=== PATIENT | male | born 1935 | race Caucasian/White ===

== ENCOUNTER 2018-08-27 15:28 | Emergency (ER) | payer MEDICARE, OTHER ==
[~2018-08-27] VITALS: Ht 188 cm; Wt 108.9 kg
[~2018-08-27 15:28] MED LIST: ALBU3IS; AMOX500 PO; ASPI81CH PO; CLARITIN10 MG PO; CYCL10 PO; DOCU100 PO; GUAI600T33 PO; HYDMOR2 PO; Hydrocodone-Ap1 EA20 PO; LAVAP17G; LISI20 PO; MELA3 PO; METO25; MIRALAX119 GM PO; MORP15ER PO; Morphine Sulfat15 MG PO; ONDA4 PO; Prednisone20 MG PO; SACC250C PO; SENN187 PO; TAMS.4ER PO; TIZANIDINE HCL2 MG PO; WARF5; Zithromax250 MG PO
== END 2018-08-27 18:57 | disposition home or self-care (01) ==
LOC: ER 15:28
DX: T83.028A Displacement of other urinary catheter, initial encounter (principal); Z88.8 Allergy status to other drugs, medicaments and biological substances; Z88.5 Allergy status to narcotic agent; Z79.899 Other long term (current) drug therapy; Z79.82 Long term (current) use of aspirin; Z79.52 Long term (current) use of systemic steroids; J44.9 Chronic obstructive pulmonary disease, unspecified; Z87.891 Personal history of nicotine dependence
CPT/HCPCS: 99283

== ENCOUNTER → 2018-10-13 | Outpatient (CLI) | payer MEDICARE, OTHER ==
[2018-10-19 09:07] LABS: BRUSHITE 5.24 ratio (0.00-3.00); CALCIUM OXALATE 5.86 ratio (0.00-6.00); CALCIUM, URINE 135.8 mg/24 hr (100.0-300.0); CALCIUM, URINE 9.7 mg/dL (Not Estab.); CHLORIDE URINE 106 (110-250); CITRIC ACID (CITRATE) 32 mg/L (Not Estab.); CITRIC ACID(CITRATE) 45 mg/24 hr (320-1240); CREATININE, URINE 85.5 mg/dL (Not Estab.); MAGNESIUM, URINE 7.5 mg/dL (Not Estab.); MONOSODIUM URATE 2.96 ratio (0.00-4.00); OSMOLALITY, URINE 480 (300-900); SODIUM, URINE 118 (23-207); SODIUM, URINE 84 mmol/L (Not Estab.); STRUVITE 2.23 ratio (0.00-1.00); URIC ACID 0.14 ratio (0.00-1.20); URINE VOLUME 1400 mL/24 hr (800-1800); URINE VOLUME (PRESERVATIVE) 1400 mL/24 hr (800-1800)
== END ==
LOC: LAB SHORT 08:32 → LAB 08:32
PROVIDERS: Nurse Practitioner Adult Health
DX: N20.2 Calculus of kidney with calculus of ureter (principal); R33.9 Retention of urine, unspecified
CPT/HCPCS: 81003; 81050; 82131; 82140; 82340; 82436; 82507; 82570; 83735; 83935; 83945; 84105; 84133; 84300; 84392; 84560

== ENCOUNTER 2019-01-29 16:28 | Inpatient (IN) | payer MEDICARE, OTHER ==
[~2019-01-29] VITALS: Ht 188 cm; Wt 109.4 kg
[~2019-01-29 16:28] MED LIST changes: -ASPI81CH PO; +Aspirin EC81 MG PO; +DOC250 PO
[2019-01-29 17:03] LABS: BASOPHILS ABSOLUTE AUTO 0.08 K/mm3 (0.00-0.23); BASOPHILS PERCENT AUTO 1 % (0-2); EOSINOPHILS ABSOLUTE AUTO 0.58 K/mm3 (0.00-0.68); EOSINOPHILS PERCENT AUTO 8 % (0-6); Hematocrit 46.8 % (37.0-53.0); Hemoglobin 15.6 g/dL (13.5-17.5); IMMATURE GRAN ABSOLUTE AUTO 0.03 K/mm3 (0.00-0.10); IMMATURE GRAN PERCENT AUTO 0 % (0-1); LYMPHOCYTES ABSOLUTE AUTO 1.37 K/mm3 (0.84-5.20); LYMPHOCYTES PERCENT AUTO 19 % (21-46); MONOCYTES PERCENT AUTO 8 % (4-13); Mean Corpuscular HGB 30.7 pg (26.0-34.0); Mean Corpuscular HGB Conc 33.3 g/dL (31.5-36.5); Mean Corpuscular Volume 92 fL (80-100); Mean Platelet Volume 9.8 fL (9.1-12.4); NEUTROPHILS ABSOLUTE AUTO 4.53 K/mm3 (1.96-9.15); NEUTROPHILS PERCENT AUTO 63 % (41-73); Platelet Count 290 K/mm3 (150-400); RDW Coefficient Variation 13.1 % (11.7-14.2); Red Blood Cell Count 5.08 M/mm3 (4.30-5.90); White Blood Cell Count 7.19 K/mm3 (4.00-11.30)
[2019-01-29 17:29] LABS: Albumin, Blood 3.8 g/dL (3.4-5.0); Bilirubin, Total 0.4 mg/dL (0.1-1.0); Bun/Creatinine Ratio 18.1 (12.0-20.0); Calcium, Blood 8.7 mg/dL (8.5-10.1); Creatinine, Blood 1.38 mg/dL (0.60-1.20); Globulin, Blood 3.8 g/dL (2.2-4.0); Potassium, Blood 3.9 mmol/L (3.5-5.5); Total Protein, Blood 7.6 g/dL (6.4-8.2); Troponin I 0.016 ng/mL (0.000-0.040)
[2019-01-29 18:04] LABS: PCO2 Arterial 42.9 mmHg (35-45); PO2 Arterial 74.2 mmHg (80-100); pH Blood Arterial 7.42 (7.35-7.45)
[2019-01-29] MEDS ORDERED: ALBU90OI INH (18:05)
[2019-01-29] MEDS ORDERED: DILTIAZEM 24HR360 MG PO (18:07)
[2019-01-29] MEDS ORDERED: BUDE6HFA INH (18:07)
[2019-01-29] MEDS ORDERED: DULO60 PO (18:07)
[2019-01-29] MEDS ORDERED: SENN187 PO (18:07)
[2019-01-29] MEDS ORDERED: LOSA50 PO (18:08)
[2019-01-29] MEDS ORDERED: MIRALAX17 GM PO (21:24)
[2019-01-29] MEDS ORDERED: TIOT18 INH (21:26)
[2019-01-30 00:43] LABS: Source, Urine Catheter
[2019-01-30 00:45] LABS: Bilirubin, Urine Neg (Neg); Blood, Urine 5+ (Neg); Glucose Qualitative, Urine Neg (Neg); Ketones, Urine 2+ (Neg); Leukocyte Esterase, Urine 3+ (Neg); Nitrite, Urine Pos (Neg); Protein, Urine 2+ (Neg); Specific Gravity, Urine 1.025 (1.003-1.022); Urobilinogen, Urine 1+ (Normal)
[2019-01-30 00:46] LABS: Appearance, Urine Cloudy (Clear); Color, Urine Yellow (P-Yellow)
[2019-01-30 01:05] LABS: Bacteria Many /hpf; Hyaline Casts 25-50 /lpf (0-2); Squamous Epithelial Cells Rare /hpf (Few); White Blood Cells, Urine 50-100 /hpf (0-5)
[2019-01-30 09:45] LABS: Adenovirus Not Detected (NOT DETECT); Bordetella pertussis Not Detected (NOT DETECT); Chlamydophila pneumoniae Not Detected (NOT DETECT); Coronavirus 229E Not Detected (NOT DETECT); Coronavirus HKU1 Not Detected (NOT DETECT); Coronavirus NL63 Not Detected (NOT DETECT); Coronavirus OC43 Not Detected (NOT DETECT); Human Metapneumovirus Not Detected (NOT DETECT); Human Rhinovirus/Enterovirus Not Detected (NOT DETECT); Influenza A Not Detected (NOT DETECT); Influenza A/2009-H1 Not Detected (NOT DETECT); Influenza A/H1 Not Detected (NOT DETECT); Influenza A/H3 Not Detected (NOT DETECT); Influenza B Not Detected (NOT DETECT); Mycoplasma pneumoniae Not Detected (NOT DETECT); Parainfluenza Virus 1 Not Detected (NOT DETECT); Parainfluenza Virus 2 Not Detected (NOT DETECT); Parainfluenza Virus 3 Not Detected (NOT DETECT); Parainfluenza Virus 4 Not Detected (NOT DETECT); Respiratory Syncytial Virus Not Detected (NOT DETECT)
--- NOTE | 2019-01-30 17:08 | NUR ---
SHIFT SUMMARY PT AXO, PLEASANT AND COOPERATIVE WITH CARE. PT HYPERTENSIVE THIS MORNING AT 166/111. DR MURRAY AWARE, MEDICATED PER EMAR. PT AMBULATED DOWN THE HALLWAY WITH 1 ASSIST GB AND FWW THOUGH PT MOVES QUICKLY AND IS IMPULSIVE, NEEDS REMINDERS TO SLOW. 02 AT 95% POST AMBULATION. PT DENIES PAIN. COMPLAINS OF GAS AND ACID REFLUX, DR MURRAY AWARE AND NEW ORDERS IN PLACE. BED IN LOW POSITION, CALL LIGHT WITHIN REACH.
[2019-01-31] MEDS ORDERED: CIPR500 PO (02:09)
--- NOTE | 2019-01-31 04:44 | NUR ---
SHIFT SUMMARY NO ACUTE CHANGES THIS SHIFT. PT HAS RESTED FOR MOST OF THE NIGHT. PT RESP E/U ON RA. LUNGS ARE DIMISHED T/O. PT CONTINUES TO HAVE PRODUCTIVE COUGH WITH GREEN/YELLOW THICK SPUTUM. BREATHING TREATMENTS PROVIDED ORDERED. PT HAS HX OF CONSTIPATION, BOWEL CARE STARTED. LAST CHARTED BM 01/29/19. VITALS STABLE. PLAN IS TO SWITCH TO ORAL STEROIDS AND POSSIBLE DC TODAY. BED IN LOWEST POSITION, CALL LIGHT WITHIN REACH. WILL CONTINUE TO MONITOR AND REPORT TO ONCOMING RN.
[2019-01-31] MEDS ORDERED: ACET325 PO (09:14)
[2019-01-31] MEDS ORDERED: ROBITUSSIN COU237 ML PO (09:15)
[2019-01-31] MEDS ORDERED: PRED20 (09:17)
--- NOTE | 2019-01-31 09:42 | NUR ---
DISCHARGE INSTRUCTIONS REVIEWED WITH PATIENT. PRINTED COPY GIVEN FOR REFERENCE. ALL QUESTIONS ANSWERED. PER DR MURRAY, SILVA INHALER TO BE SENT HOME WITH PATIENT. IV D/C'ED. TAYLOR TO REMAIN IN PLACE.
--- NOTE | 2019-01-31 10:25 | NUR ---
PATIENT DISCHARGED HOME AT 1025 WITH . TRANSFERED TO VEHICLE BY WHEELCHAIR AND MEDICAL PHYSIOLOGIST.
== END 2019-01-31 10:35 | disposition home or self-care (01) | DRG 192 ==
LOC: ER 16:28 → MEDS 19:23 → ENPENDDIS 01-31 09:52 → MEDS 01-31 10:35
PROVIDERS: Emergency Medicine; ADMIT Family Medicine
DX: J44.1 Chronic obstructive pulmonary disease with (acute) exacerbation (principal); I10 Essential (primary) hypertension; I48.91 Unspecified atrial fibrillation; Z79.82 Long term (current) use of aspirin; Z86.718 Personal history of other venous thrombosis and embolism; Z88.5 Allergy status to narcotic agent; Z88.8 Allergy status to other drugs, medicaments and biological substances; Z87.891 Personal history of nicotine dependence
CPT/HCPCS: 0099U; 36415; 36600; 71045; 80053; 81001; 82803; 83880; 84484; 85025; 87077; 87086; 87186; 93005; 93010; 94640; 94644; 94760; 96374; 99285-25; J2930

== ENCOUNTER 2019-05-26 20:36 | Inpatient (IN) | payer OTHER ==
[~2019-05-26] VITALS: Ht 188 cm; Wt 112.1 kg
[~2019-05-26 20:36] MED LIST changes: +ACET325 PO; +ALBU90OI INH; +BUDE6HFA INH; +CIPR500 PO; +DILTIAZEM 24HR360 MG PO; +DULO60 PO; +LOSA50 PO; +MIRALAX17 GM PO; +PRED20; +ROBITUSSIN COU237 ML PO; +TIOT18 INH
[2019-05-26 21:39] LABS: BASOPHILS ABSOLUTE AUTO 0.03 K/mm3 (0.00-0.23); BASOPHILS PERCENT AUTO 0 % (0-2); EOSINOPHILS PERCENT AUTO 0 % (0-6); Hematocrit 47.4 % (37.0-53.0); IMMATURE GRAN ABSOLUTE AUTO 0.18 K/mm3 (0.00-0.10); IMMATURE GRAN PERCENT AUTO 1 % (0-1); LYMPHOCYTES ABSOLUTE AUTO 0.36 K/mm3 (0.84-5.20); LYMPHOCYTES PERCENT AUTO 2 % (21-46); MONOCYTES ABSOLUTE AUTO 0.98 K/mm3 (0.16-1.47); MONOCYTES PERCENT AUTO 5 % (4-13); Mean Corpuscular HGB 28.7 pg (26.0-34.0); Mean Corpuscular HGB Conc 31.6 g/dL (31.5-36.5); Mean Corpuscular Volume 91 fL (80-100); NEUTROPHILS ABSOLUTE AUTO 16.78 K/mm3 (1.96-9.15); NEUTROPHILS PERCENT AUTO 92 % (41-73); Platelet Count 318 K/mm3 (150-400); RDW Coefficient Variation 13.4 % (11.7-14.2); Red Blood Cell Count 5.22 M/mm3 (4.30-5.90); White Blood Cell Count 18.33 K/mm3 (4.00-11.30)
[2019-05-26 21:50] LABS: Albumin, Blood 3.6 g/dL (3.4-5.0); Albumin/Globulin Ratio 0.9 (0.8-1.8); Bilirubin, Total 0.3 mg/dL (0.1-1.0); Bun/Creatinine Ratio 38.5 (12.0-20.0); Calcium, Blood 9.2 mg/dL (8.5-10.1); Creatinine, Blood 1.43 mg/dL (0.60-1.20); Globulin, Blood 4.1 g/dL (2.2-4.0); Potassium, Blood 4.3 mmol/L (3.5-5.5); Total Protein, Blood 7.7 g/dL (6.4-8.2)
[2019-05-27 02:58] LABS: Source, Urine Catheter
[2019-05-27 03:00] LABS: Bilirubin, Urine Neg (Neg); Blood, Urine 5+ (Neg); Glucose Qualitative, Urine Neg (Neg); Ketones, Urine Neg (Neg); Leukocyte Esterase, Urine 3+ (Neg); Nitrite, Urine Pos (Neg); Protein, Urine 2+ (Neg); Specific Gravity, Urine 1.025 (1.003-1.022); Urobilinogen, Urine NORM (Normal)
[2019-05-27 03:06] LABS: Appearance, Urine Cloudy (Clear); Bacteria Many /hpf; Color, Urine Yellow (P-Yellow); Red Blood Cells, Urine Rare /hpf (0-2); Squamous Epithelial Cells Not Seen /hpf (Few); White Blood Cells, Urine TNTC /hpf (0-5)
[2019-05-27 03:44] LABS: Adenovirus Not Detected (NOT DETECT); Bordetella pertussis Not Detected (NOT DETECT); Chlamydophila pneumoniae Not Detected (NOT DETECT); Coronavirus 229E Not Detected (NOT DETECT); Coronavirus HKU1 Not Detected (NOT DETECT); Coronavirus NL63 Not Detected (NOT DETECT); Coronavirus OC43 Not Detected (NOT DETECT); Human Metapneumovirus Not Detected (NOT DETECT); Human Rhinovirus/Enterovirus Not Detected (NOT DETECT); Influenza A/2009-H1 Not Detected (NOT DETECT); Influenza A/H1 Not Detected (NOT DETECT); Influenza A/H3 Not Detected (NOT DETECT); Influenza B Not Detected (NOT DETECT); Mycoplasma pneumoniae Not Detected (NOT DETECT); Parainfluenza Virus 1 Not Detected (NOT DETECT); Parainfluenza Virus 2 Not Detected (NOT DETECT); Parainfluenza Virus 3 Not Detected (NOT DETECT); Parainfluenza Virus 4 Not Detected (NOT DETECT); Respiratory Syncytial Virus Detected (NOT DETECT)
--- NOTE | 2019-05-27 05:34 | NUR ---
SHIFT SUMMARY PT NEW ED ADMIT THIS EVENING. VERY SHORT OF BREATH. ARRIVED ON BIPAP AND HAS REMAINED ON BIPAP SINCE ADMISSION. BIPAP SETTINGS 18/8 WITH A BACK UP RATE OF 10, 35% FIO2 AND O2 SATS IN LOW TO MID 90'S. RESPIRATIONS IN THE 20'S-30'S. BREATHING TX'S GIVEN NEEDED BY RT. PT'S LUNG SOUNDS WHEEZY AND DIMINISHED THROUGHOUT. PT HAS HAD INFREQUENT NONPRODUCTIVE COUGH. MEDICATED X 1 W/ ORDERED ROBITUSSIN. PT TRANSFERED FROM [facility] TO BED WITH SBA BUT WAS VERY UNSTEADY ON HIS FEET. PT HAS REMAINED IN BED THIS SHIFT. PT HAS CHRONIC TAYLOR CATHETER THAT HE GETS CHANGED AT THE CT. TAYLOR CHANGED BY THIS RN AND UA SAMPLE SENT TO LAB. PT HAS RED SCALEY SKIN ON BILATERAL UPPER AND LOWER EXTREMETIES. PT BECOMES VERY ANXIOUS, NEW ORDER FOR 0.5 MG IV ATIVAN. ONCE ORDER WAS OBTAINED PT HAD CALMED, NONE HAS BEEN GIVEN THIS SHIFT. PT RESTING IN BED AT THIS TIME. WILL CONTINUE TO MONITOR.
[2019-05-27 11:04] LABS: Hemoglobin 14.4 g/dL (13.5-17.5); Mean Corpuscular HGB 28.9 pg (26.0-34.0); Mean Corpuscular Volume 90 fL (80-100); Platelet Count 262 K/mm3 (150-400); RDW Coefficient Variation 13.5 % (11.7-14.2); RDW Standard Deviation 44.6 fL (35.1-46.3); Red Blood Cell Count 4.99 M/mm3 (4.30-5.90); White Blood Cell Count 14.27 K/mm3 (4.00-11.30)
[2019-05-27 11:24] LABS: Albumin, Blood 3.4 g/dL (3.4-5.0); Albumin/Globulin Ratio 0.8 (0.8-1.8); Bilirubin, Total 0.4 mg/dL (0.1-1.0); Bun/Creatinine Ratio 42.2 (12.0-20.0); Calcium, Blood 9.3 mg/dL (8.5-10.1); Creatinine, Blood 1.35 mg/dL (0.60-1.20); Potassium, Blood 4.4 mmol/L (3.5-5.5); Total Protein, Blood 7.4 g/dL (6.4-8.2)
--- NOTE | 2019-05-27 17:25 | NUR ---
SHIFT SUMMARY PT ALERT AND ORIENTED. VS STABLE. HR NSR. O2 SATS HAVE REMAINED ABOVE 90% ON BIPAP FI02 OF 35%. PT ONLY TOLERATING SHORT BREAKS FROM BIPAP TO 3L NC. LS WHEEZES THROUGHOUT AND TIGHT IN THE BASES. RESPIRATIONS 20-30. PT REPOSITIONING HIMSELF IN BED. CHRONIC TAYLOR PATENT AND DRAINING. WILL CONITNUE TO MONITOR AND REPORT TO ONCOMING RN. CALL LIGHT IN REACH.
--- NOTE | 2019-05-27 19:15 | NUR ---
OPENING NOTE RECEIVED REPORT FROM FLORENCIA GUERRERO AT THE BEDSIDE AND ASSUMED PT CARE. PT IS RESTING WITH EYES CLOSED, BIPAP IN PLACE, TOLERATING WELL. CONT BIOX IN PLACE WITH SATS BETWEEN 91-93%. NO ACUTE CONCERNS AT THIS TIME, WILL CONTINUE TO MONITOR AND CONTINUE PLAN OF CARE.
--- NOTE | 2019-05-27 23:00 | NUR ---
EVENT NOTE PT CONVERTED TO AFIB WITH RATE 150'S-170'S. PT IS ASYMPTOMATIC, DENIES COMPLAINTS. UPON REVIEW OF HOME MED LIST, PT HAS NOT BEEN RESTARTED ON ANY HOME MEDS, INCLUDING CARDIZEM PO. CALL PLACED TO HOSPITALIST AND ORDERS RECEIVED. WILL START CARDIZEM GTT AND TITRATE PER GUIDELINE, WILL MONITOR PT MORE CLOSELY FOR HR CONTROL, BP, CHEST PAIN, AND SHORTNESS OF BREATH.
[2019-05-28 04:43] LABS: BASOPHILS ABSOLUTE AUTO 0.02 K/mm3 (0.00-0.23); BASOPHILS PERCENT AUTO 0 % (0-2); EOSINOPHILS PERCENT AUTO 0 % (0-6); Hematocrit 44.7 % (37.0-53.0); IMMATURE GRAN ABSOLUTE AUTO 0.08 K/mm3 (0.00-0.10); IMMATURE GRAN PERCENT AUTO 1 % (0-1); LYMPHOCYTES PERCENT AUTO 3 % (21-46); MONOCYTES ABSOLUTE AUTO 0.65 K/mm3 (0.16-1.47); MONOCYTES PERCENT AUTO 5 % (4-13); Mean Corpuscular HGB 28.2 pg (26.0-34.0); Mean Corpuscular HGB Conc 31.3 g/dL (31.5-36.5); Mean Corpuscular Volume 90 fL (80-100); Mean Platelet Volume 10.4 fL (9.1-12.4); NEUTROPHILS ABSOLUTE AUTO 11.38 K/mm3 (1.96-9.15); NEUTROPHILS PERCENT AUTO 91 % (41-73); Platelet Count 247 K/mm3 (150-400); RDW Coefficient Variation 13.5 % (11.7-14.2); RDW Standard Deviation 45.3 fL (35.1-46.3); Red Blood Cell Count 4.96 M/mm3 (4.30-5.90); White Blood Cell Count 12.53 K/mm3 (4.00-11.30)
[2019-05-28 05:02] LABS: Albumin, Blood 3.2 g/dL (3.4-5.0); Albumin/Globulin Ratio 0.9 (0.8-1.8); Bilirubin, Total 0.4 mg/dL (0.1-1.0); Calcium, Blood 9.1 mg/dL (8.5-10.1); Creatinine, Blood 1.32 mg/dL (0.60-1.20); Globulin, Blood 3.7 g/dL (2.2-4.0); Magnesium, Blood 2.8 mg/dL (1.6-2.4); Potassium, Blood 4.3 mmol/L (3.5-5.5); Total Protein, Blood 6.9 g/dL (6.4-8.2)
--- NOTE | 2019-05-28 05:43 | NUR ---
SHIFT SUMMARY PT HAS RESTED WELL THROUGH SHIFT, REMAINED ON BIPAP EXCEPT FOR BRIEF BREAKS FOR SIPS AND ORAL CARE. PT DENIES COMPLAINTS, STATES "I FEEL LIKE I'M FINALLY STARTING TO FEEL BETTER". MONITOR CONTINUES TO SHOW AFIB, CARDIZEM GTT RUNNING AT 15 ML/HR WITH HR 120-130'S AT THIS TIME. WILL COMMUNICATE TO DAY SHIFT RN THAT HOME MEDICATIONS WERE NOT ORDERED AT ADMISSION. BIPAP SETTINGS ARE 18/8 WITH 35% FIO2. SATS ARE 91-94% WITH RR: 20'S. INCREASED WORK OF BREATHING DURING BREAKS OFF BIPAP BUT SATS MAINTAIN ON 3 L NC. PT STATES " I FEEL BETTER WHEN I HAVE IT ON". 1/2 NS RUNNING AT 75 ML/HR. WILL PROVIDE BEDSIDE REPORT TO DAY SHIFT RN.
--- NOTE | 2019-05-28 06:48 | NUR ---
EVENT NOTE UPDATED DR. ZHU ON CURRENT HEART RATE: 120'S TO 140'S, BRIEFLY TOUCHING HIGHER AT TIMES. NO NEW ORDERS, CARDIZEM GTT CONTINUED AT 15 ML/HR.
--- NOTE | 2019-05-28 17:48 | NUR ---
SHIFT SUMMARY PT A&Ox4; CALM AND COOPERATIVE WITH CARE. PT RESTING IN BED; ENCOURAGED REPOSITIONING Q2 TO PREVENT PRESSURE ULCERS. PT SOB AT REST; TACHYPNIC; LS TIGHT, DIM BASES WITH EXP/INS WHEEZES T/O; PT TOLERATING SHORT BREAKS 10-20 ON 3L O2 VIA NC;REPLACE BIPAP FOR RESPIRATORY EFFORT. PT AFIB THIS AM ON CARDIZEM DRIP, CONVERTED TO SR AT APPROX 740; DRIPPED DISCONTINUES AT APPROX 0900 WITH HR IN 70-80'S. PT DENIES PAIN, CHEST PAIN/PRESSURE, NAUSEA AND DIZZINESS. PT STARTED ON HOME CARDIZE. PT RECEIVING IV STEROIDS. VSS. NO OTHER ACUTE CHANGES NOTED DURING SHIFT. WILL CONTINUE TO MONITOR UNITL REPORT GIVEN TO ONCOMING RN.
--- NOTE | 2019-05-29 04:12 | NUR ---
SHIFT SUMMARY HAS RESTED COMFORTABLY THROUGHOUT THIS SHIFT. VSS HAVE REMAINED STABLE, HAS CONTINUED TO DENY PAIN OR DISCOMFORT. NO CHANGES TO BIPAP NOTED, HAS WORN THROUGHOUT NIGHT. DEINES FURTHER NEEDS OR WANTS AT THIS TIME. SAFETY MEASURES IN PLACE. WILL GIVE HAND OFF TO ONCOMING SHIFT USING SBAR.
[2019-05-29 05:46] LABS: Hematocrit 42.9 % (37.0-53.0); Hemoglobin 13.7 g/dL (13.5-17.5); Mean Corpuscular HGB 28.8 pg (26.0-34.0); Mean Corpuscular HGB Conc 31.9 g/dL (31.5-36.5); Mean Corpuscular Volume 90 fL (80-100); Mean Platelet Volume 10.2 fL (9.1-12.4); Platelet Count 214 K/mm3 (150-400); RDW Coefficient Variation 13.2 % (11.7-14.2); Red Blood Cell Count 4.75 M/mm3 (4.30-5.90); White Blood Cell Count 10.56 K/mm3 (4.00-11.30)
[2019-05-29 06:12] LABS: Anion Gap 3 mmol/L (6-16); Blood Urea Nitrogen 61 mg/dL (8-24); Bun/Creatinine Ratio 50.4 (12.0-20.0); CO2, Blood 30 mmol/L (21-32); Calcium, Blood 8.7 mg/dL (8.5-10.1); Chloride, Blood 111 mmol/L (98-108); Creatinine, Blood 1.21 mg/dL (0.60-1.20); Glomerular Filtration Rate >60 (60-); Glucose, Blood 183 mg/dL (70-99); Potassium, Blood 4.2 mmol/L (3.5-5.5); Sodium, Blood 144 mmol/L (136-145)
--- NOTE | 2019-05-29 18:03 | NUR ---
PCU DAYSHIFT SUMMARY PATIENT ALERT AND ORIENTED X4 T/O SHIFT. PATIENT WORE BIPAP FOR MAJORITY OF AM BUT WAS ABLE TO TOLERATE NO BIPAP ON 3 LPM NC THIS AFTERNOON FOR 4 AND COUNTING HOURS. PATIENT TRANSFERED WITH WALKER UP TO RECLINER CHAIR - TOLERATED WELL WITH 1-2 SBA. PATIENT HAD BOWEL MOVEMENTS X3 THIS SHIFT. HEART RATE FLIPPING BETWEEN NSR AND AFIB WITH RATE IN THE 70-80'S. VSS. PATIENT ENCOURAGED TO COUGH AND DEEP BREATH T/O DAY. PATIENTS DIET ADVANCED - TOLERATED WELL. WILL CONTINUE TO MONITOR AND GIVE REPORT TO NOC SHIFT RN. CALL LIGHT W/I REACH.
[2019-05-30 04:28] LABS: BASOPHILS ABSOLUTE AUTO 0.05 K/mm3 (0.00-0.23); BASOPHILS PERCENT AUTO 1 % (0-2); EOSINOPHILS PERCENT AUTO 0 % (0-6); Hematocrit 45.2 % (37.0-53.0); Hemoglobin 14.5 g/dL (13.5-17.5); IMMATURE GRAN ABSOLUTE AUTO 0.42 K/mm3 (0.00-0.10); IMMATURE GRAN PERCENT AUTO 4 % (0-1); LYMPHOCYTES ABSOLUTE AUTO 0.31 K/mm3 (0.84-5.20); LYMPHOCYTES PERCENT AUTO 3 % (21-46); MONOCYTES ABSOLUTE AUTO 0.42 K/mm3 (0.16-1.47); MONOCYTES PERCENT AUTO 4 % (4-13); Mean Corpuscular HGB Conc 32.1 g/dL (31.5-36.5); Mean Corpuscular Volume 90 fL (80-100); Mean Platelet Volume 10.4 fL (9.1-12.4); NEUTROPHILS ABSOLUTE AUTO 9.35 K/mm3 (1.96-9.15); NEUTROPHILS PERCENT AUTO 89 % (41-73); Platelet Count 238 K/mm3 (150-400); RDW Coefficient Variation 13.2 % (11.7-14.2); RDW Standard Deviation 43.9 fL (35.1-46.3); White Blood Cell Count 10.55 K/mm3 (4.00-11.30)
[2019-05-30 04:34] LABS: Albumin, Blood 2.8 g/dL (3.4-5.0); Albumin/Globulin Ratio 0.8 (0.8-1.8); Bilirubin, Total 0.5 mg/dL (0.1-1.0); Bun/Creatinine Ratio 45.7 (12.0-20.0); Calcium, Blood 8.7 mg/dL (8.5-10.1); Creatinine, Blood 1.27 mg/dL (0.60-1.20); Globulin, Blood 3.7 g/dL (2.2-4.0); Potassium, Blood 4.2 mmol/L (3.5-5.5); Total Protein, Blood 6.5 g/dL (6.4-8.2)
--- NOTE | 2019-05-30 05:38 | NUR ---
SHIFT SUMMARY NO ACUTE CHANGES NOTED THROUGH THE NIGHT. PT REMAINS A&O X4, VSS. HE SAT UP IN THE CHAIR WATCHING TV UNTIL APPROX 2300 ON NC WITH NO PROBLEMS, O2 SATS REMAINED ABOVE 94%, PT HAS USED THE BIPAP WHILE IN BED PER REQUEST, RESP UNLABORED, WHEEZE NOTED THIS AM, RT CALLED FOR BREATHING TX. PT CONTINUES TO REST QUIETLY, CALL LIGHT IN REACH, WCTM
--- NOTE | 2019-05-30 17:55 | NUR ---
NOTE PT UP IN CHAIR MOST OF THE DAY. KEEPING HIM COMPANY. SR. VSS. 4L O2. DEEP, CONGESTED PRODUCTIVE COUGH. [facility]ATED [facility] AT [facility]. PHARMACY CALLED AND TALKED WITH DR BLACKWOOD. PT STARTED ON ANTIBIOTICS. PT DRANK A LOT OF PEPSI TODAY. THEN GOT SICK TO HIS STOMACH. ZOFRAN GIVEN X1. PT ABLE TO EAT DINNER. CONTINUE POT.
[2019-05-31 04:53] LABS: BASOPHILS ABSOLUTE AUTO 0.08 K/mm3 (0.00-0.23); BASOPHILS PERCENT AUTO 1 % (0-2); EOSINOPHILS PERCENT AUTO 0 % (0-6); Hematocrit 44.8 % (37.0-53.0); Hemoglobin 14.4 g/dL (13.5-17.5); IMMATURE GRAN ABSOLUTE AUTO 0.76 K/mm3 (0.00-0.10); IMMATURE GRAN PERCENT AUTO 7 % (0-1); LYMPHOCYTES ABSOLUTE AUTO 0.27 K/mm3 (0.84-5.20); LYMPHOCYTES PERCENT AUTO 3 % (21-46); MONOCYTES ABSOLUTE AUTO 0.31 K/mm3 (0.16-1.47); MONOCYTES PERCENT AUTO 3 % (4-13); Mean Corpuscular HGB 28.7 pg (26.0-34.0); Mean Corpuscular HGB Conc 32.1 g/dL (31.5-36.5); Mean Corpuscular Volume 89 fL (80-100); Mean Platelet Volume 10.4 fL (9.1-12.4); NEUTROPHILS ABSOLUTE AUTO 9.04 K/mm3 (1.96-9.15); NEUTROPHILS PERCENT AUTO 86 % (41-73); Platelet Count 224 K/mm3 (150-400); RDW Coefficient Variation 13.2 % (11.7-14.2); Red Blood Cell Count 5.01 M/mm3 (4.30-5.90); White Blood Cell Count 10.46 K/mm3 (4.00-11.30)
[2019-05-31 05:30] LABS: Anion Gap 6 mmol/L (6-16); Blood Urea Nitrogen 53 mg/dL (8-24); Bun/Creatinine Ratio 44.2 (12.0-20.0); CO2, Blood 27 mmol/L (21-32); Calcium, Blood 8.7 mg/dL (8.5-10.1); Chloride, Blood 112 mmol/L (98-108); Glomerular Filtration Rate >60 (60-); Glucose, Blood 191 mg/dL (70-99); Potassium, Blood 4.4 mmol/L (3.5-5.5); Sodium, Blood 145 mmol/L (136-145)
--- NOTE | 2019-05-31 06:33 | NUR ---
SUMMARY NO ACUTE CHANGES NOTED THROUGH THE NIGHT. PT REMAINS A&O X4, ON 4 L O2 VIA NC, PRN BREATHING TX, VSS. CALL LIGHT IN REACH, WCTM
--- NOTE | 2019-05-31 15:15 | NUR ---
PT ARRIVED TO ROOM VIA W/C FROM PCU. TRANSFERRED WITH 1 PERSON ASSIST TO RECLINER CHAIR. ANTIBIOTIC STARTED BY DOCTOR OF NATUROPATHIC MEDICINE ON ARRIVAL TO ROOM. AT BEDSIDE.
--- NOTE | 2019-05-31 15:52 | NUR ---
PCU TRANSFER TO MEDICAL PATIENT REMAINED ALERT AND ORIENTED X4. RESP E/U AT REST ON 4 LPM NC. PATIENT SBA WITH FWW. PATIENT MED NO TELE - TELE MONITOR D/C'D. PATIENT TRANSFERED TO WHEEL CHAIR AND TAKEN TO ROOM 304 WITH PCT. NO ACUTE DISTRESS NOTED. CHRONIC TAYLOR CATH REMAINED IN PLACE. PATIENTS WIFES EDUCATED TO TRANSFER. REPORT GIVEN TO MEDICAL FLOOR RN.
--- NOTE | 2019-05-31 18:44 | NUR ---
SHIFT SUMMARY PT REPORTS HE HASN'T DONE WELL THIS AFTERNOON SINCE HE WASN'T ABLE TO GO HOME TODAY LIKE HE THOUGHT HE WOULD. HAS NEEDED SEVERAL REMINDERS TO BREATHE IN THROUGH HIS NOSE AND OUT THROUGH HIS MOUTH. COUGHS EASILY.
[2019-06-01] MEDS ORDERED: LISI5 PO (15:52)
[2019-06-01] MEDS ORDERED: ALBU2.5V5 INH (15:58)
[2019-06-01] MEDS ORDERED: BUDE.25 NEB (15:59)
[2019-06-01] MEDS ORDERED: CEFU500T30 PO (16:00)
[2019-06-01] MEDS ORDERED: GUAI600T33 PO (16:00)
[2019-06-01] MEDS ORDERED: Duoneb 2.5-0.5 M3 ML INH (16:01)
[2019-06-01] MEDS ORDERED: Prednisone10 MG (16:02)
[2019-06-01] MEDS ORDERED: MIRALAX17 GM PO (16:03)
--- NOTE | 2019-06-01 18:18 | NUR ---
DISCHARGE SUMMARY PT DISCAHRGED TO HOME. PT AND SPOUSE EDUCATED ON DISCHARGE INSTRUCTIONS. [facility] AFTER MULTIPLE ATTEMPTS, [facility] STATES THAT THEY STILL DID NOT RECIEVE THE LIST. SINCE THEY CLOSE AT 1700. WE RAN OUT OF TIME. PTS SPOUSE STATES THAT SHE HAS ENOUGH MEDICATIONS AT HOME AND WILL FOLLOW [facility]ROW WITH [facility]. PT AND SPOUSE AGREE TO FOLLOW UP WITH PCP AND DR FONTAINE. PT LEFT ROOM AT 1802 VIA WHEELCHAIR AND FLESHING MACHINE OPERATOR ESCORT. VSS. PT ON 2L O2 VIA NC. IV DC'D AND BELONGINGS RETURNED.
== END 2019-06-01 18:20 | disposition home health service (06) | DRG 189 ==
LOC: ER 20:36 → PCU 23:34 → MEDS 23:34 → PCU 05-27 01:24 → MEDS 05-31 15:08
PROVIDERS: Emergency Medicine; Internal Medicine; ADMIT Internal Medicine
DX: J96.01 Acute respiratory failure with hypoxia (principal); J44.1 Chronic obstructive pulmonary disease with (acute) exacerbation; J44.9 Chronic obstructive pulmonary disease, unspecified; B97.4 Respiratory syncytial virus as the cause of diseases classified elsewhere; B96.3 Hemophilus influenzae [H. influenzae] as the cause of diseases classified elsewhere; I48.0 Paroxysmal atrial fibrillation; I10 Essential (primary) hypertension; E66.9 Obesity, unspecified; Z68.30 Body mass index [BMI] 30.0-30.9, adult; Z86.718 Personal history of other venous thrombosis and embolism; Z87.891 Personal history of nicotine dependence
CPT/HCPCS: 0099U; 36415; 71045; 71046; 80048; 80053; 81001; 83735; 83880; 85025; 85027; 87070; 87077; 87185; 87205; 94640; 94644; 94660; 94664; 94667; 94760; 94761; 94762; 97110; 97116; 97162; 97166; 97530; 97535; 98960; 99285-25; J0360; J0696; J1650; J2060; J2405; J2920; J2930

== ENCOUNTER 2019-08-02 21:52 | Inpatient (IN) | payer OTHER, MEDICARE ==
[~2019-08-02] VITALS: Ht 188 cm; Wt 105.9 kg
[~2019-08-02 21:52] MED LIST changes: +ALBU2.5V5 INH; +CEFU500T30 PO; +Duoneb 2.5-0.5 M3 ML INH; +LISI5 PO; +Prednisone10 MG
[2019-08-02 22:16] LABS: BASOPHILS ABSOLUTE AUTO 0.04 K/mm3 (0.00-0.23); BASOPHILS PERCENT AUTO 0 % (0-2); EOSINOPHILS ABSOLUTE AUTO 0.19 K/mm3 (0.00-0.68); EOSINOPHILS PERCENT AUTO 1 % (0-6); Hematocrit 39.9 % (37.0-53.0); Hemoglobin 12.9 g/dL (13.5-17.5); IMMATURE GRAN ABSOLUTE AUTO 0.05 K/mm3 (0.00-0.10); IMMATURE GRAN PERCENT AUTO 0 % (0-1); LYMPHOCYTES ABSOLUTE AUTO 0.76 K/mm3 (0.84-5.20); LYMPHOCYTES PERCENT AUTO 6 % (21-46); MONOCYTES ABSOLUTE AUTO 0.82 K/mm3 (0.16-1.47); MONOCYTES PERCENT AUTO 6 % (4-13); Mean Corpuscular HGB 28.1 pg (26.0-34.0); Mean Corpuscular HGB Conc 32.3 g/dL (31.5-36.5); Mean Corpuscular Volume 87 fL (80-100); Mean Platelet Volume 9.2 fL (9.1-12.4); NEUTROPHILS ABSOLUTE AUTO 11.91 K/mm3 (1.96-9.15); NEUTROPHILS PERCENT AUTO 86 % (41-73); Platelet Count 334 K/mm3 (150-400); RDW Standard Deviation 47.7 fL (35.1-46.3); Red Blood Cell Count 4.59 M/mm3 (4.30-5.90); White Blood Cell Count 13.77 K/mm3 (4.00-11.30)
[2019-08-02 22:29] LABS: PCO2 Arterial 35.1 mmHg (35-45); PO2 Arterial 82.6 mmHg (80-100); pH Blood Arterial 7.46 (7.35-7.45)
[2019-08-02 22:36] LABS: Alanine Aminotransfer (ALT/SGP 14 U/L (12-78); Albumin, Blood 3.4 g/dL (3.4-5.0); Albumin/Globulin Ratio 0.9 (0.8-1.8); Alk Phos 85 U/L (50-136); Anion Gap 8 mmol/L (6-16); Aspartate Aminotrans (AST/SGOT 12 U/L (12-37); Bilirubin, Total 0.6 mg/dL (0.1-1.0); Blood Urea Nitrogen 21 mg/dL (8-24); Bun/Creatinine Ratio 17.9 (12.0-20.0); CO2, Blood 25 mmol/L (21-32); Calcium, Blood 8.5 mg/dL (8.5-10.1); Chloride, Blood 107 mmol/L (98-108); Creatinine, Blood 1.17 mg/dL (0.60-1.20); Globulin, Blood 3.7 g/dL (2.2-4.0); Glomerular Filtration Rate >60 (60-); Glucose, Blood 145 mg/dL (70-99); Potassium, Blood 3.8 mmol/L (3.5-5.5); Sodium, Blood 140 mmol/L (136-145); Total Protein, Blood 7.1 g/dL (6.4-8.2); Troponin I <0.015 ng/mL (0.000-0.040)
[2019-08-02 23:59] LABS: Adenovirus Not Detected (NOT DETECT); Coronavirus 229E Not Detected (NOT DETECT); Coronavirus HKU1 Not Detected (NOT DETECT); Coronavirus NL63 Not Detected (NOT DETECT); Coronavirus OC43 Not Detected (NOT DETECT); Human Metapneumovirus Not Detected (NOT DETECT)
[2019-08-03] LABS: Bordetella pertussis Not Detected (NOT DETECT); Chlamydophila pneumoniae Not Detected (NOT DETECT); Human Rhinovirus/Enterovirus Not Detected (NOT DETECT); Influenza A/2009-H1 Not Detected (NOT DETECT); Influenza A/H1 Not Detected (NOT DETECT); Influenza A/H3 Not Detected (NOT DETECT); Influenza B Not Detected (NOT DETECT); Mycoplasma pneumoniae Not Detected (NOT DETECT); Parainfluenza Virus 1 Not Detected (NOT DETECT); Parainfluenza Virus 2 Not Detected (NOT DETECT); Parainfluenza Virus 3 Not Detected (NOT DETECT); Parainfluenza Virus 4 Not Detected (NOT DETECT); Respiratory Syncytial Virus Not Detected (NOT DETECT)
--- NOTE | 2019-08-03 00:53 | NUR ---
transfer report from [place] TIMBER ESTIMATOR on 83 year old Male being admitted with rule out covid 19 sepsis. Had BC & antibiotics in ER. PT is , full code status. Will be in enhanced droplet contact precautions. Resp panel negative. Ravi cath was changed in ER chronic ravi. Recent COPD, UTI,URI. Await admission.
[2019-08-03 01:34] LABS: BASOPHILS ABSOLUTE AUTO 0.05 K/mm3 (0.00-0.23); BASOPHILS PERCENT AUTO 0 % (0-2); EOSINOPHILS ABSOLUTE AUTO 0.02 K/mm3 (0.00-0.68); EOSINOPHILS PERCENT AUTO 0 % (0-6); Hemoglobin 12.1 g/dL (13.5-17.5); IMMATURE GRAN ABSOLUTE AUTO 0.06 K/mm3 (0.00-0.10); IMMATURE GRAN PERCENT AUTO 0 % (0-1); LYMPHOCYTES ABSOLUTE AUTO 0.73 K/mm3 (0.84-5.20); LYMPHOCYTES PERCENT AUTO 5 % (21-46); MONOCYTES ABSOLUTE AUTO 1.25 K/mm3 (0.16-1.47); MONOCYTES PERCENT AUTO 8 % (4-13); Mean Corpuscular HGB 28.3 pg (26.0-34.0); Mean Corpuscular HGB Conc 32.7 g/dL (31.5-36.5); Mean Corpuscular Volume 86 fL (80-100); Mean Platelet Volume 9.1 fL (9.1-12.4); NEUTROPHILS ABSOLUTE AUTO 13.87 K/mm3 (1.96-9.15); NEUTROPHILS PERCENT AUTO 87 % (41-73); Platelet Count 312 K/mm3 (150-400); RDW Coefficient Variation 14.9 % (11.7-14.2); Red Blood Cell Count 4.28 M/mm3 (4.30-5.90); White Blood Cell Count 15.98 K/mm3 (4.00-11.30)
[2019-08-03 01:50] LABS: Calcium, Blood 8.3 mg/dL (8.5-10.1); Creatinine, Blood 1.28 mg/dL (0.60-1.20); Potassium, Blood 3.7 mmol/L (3.5-5.5)
--- NOTE | 2019-08-03 02:28 | NUR ---
PT had lt field start per HADOOP CONSULTANT report. IV was not patent on PT arrival to floor. IV DC rest by RN in septic PT recieving antibiotics & IV Fluids
[2019-08-03 03:43] LABS: Source, Urine Clean Catch
[2019-08-03 03:45] LABS: Appearance, Urine Cloudy (Clear); Blood, Urine 4+ (Neg); Color, Urine Amber (P-Yellow); Glucose Qualitative, Urine Neg (Neg); Ketones, Urine 2+ (Neg); Leukocyte Esterase, Urine 3+ (Neg); Nitrite, Urine Pos (Neg); Protein, Urine 2+ (Neg); Urobilinogen, Urine 1+ (Normal)
[2019-08-03 03:47] LABS: Bilirubin, Urine 1+ (Neg)
[2019-08-03 03:51] LABS: White Blood Cells, Urine TNTC /hpf (0-5)
[2019-08-03 03:52] LABS: Bacteria Many /hpf; Squamous Epithelial Cells Few /hpf (Few)
--- NOTE | 2019-08-03 06:06 | NUR ---
83 year old Male admitted with severe sepsis rule out covid 19. PT has chronic ravi cath x 5 years changed 07/26/2019 at [facility] urology clinic. PT with several recent UTI & PT had ravi replaced in ER. UA sent from new ravi placed & positive UA. PT had hypotension fever 100.[address] IVERSON called with critical lactic level reflexed from earlier 2.1 lactic level & fluid bolus's given with repeat lactic level after 2 l bolus. LActic acid level 1.7. BP improved t 98.4. PT on room air, recent pneumonia & recent abnormal barium swallow. PT lives with & she called several times. PT updated spouse on plan of care. PT refused lovenox, hx of chronic lt le DVT x 10 years * IVC filter. 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 Continue to support. Hard of hearing had 1 hearing aide on admission.
[2019-08-03] MEDS ORDERED: Vitamin D2000 UNIT PO (07:37)
[2019-08-03] MEDS ORDERED: LOSA25 PO (07:39)
[2019-08-03] MEDS ORDERED: ROFL500T PO (07:40)
[2019-08-03] MEDS ORDERED: TIOT18 INH (07:41)
[2019-08-03] MEDS ORDERED: ASPI81CH PO (07:41)
--- NOTE | 2019-08-03 16:16 | NUR ---
Initial spiritual care note: Mr. Feng appears SOB and admits that he is worried about this illness. He is satisfied with his Full Code status and beleives he will get better. He allowed me to pray for him, but was otherwise dismissive. I will remain available.
--- NOTE | 2019-08-03 17:10 | NUR ---
SHIFT SUMMARY- PT A/OX4. PT DENIES ANY COMPLAINTS T/O THE DAY. LS CLEAR/ DIMINISHED IN THE BASES, ON RA. HACKING COUHG, OCC PRODUCTIVE OF THICK YELLOW SPUTUM, SPUTUM SENT. COVID 19 R/0. CHRONIC INDWELLING TAYLOR PATENT AND DRAINING. NO OTHER ACUTE CHANGES T/O THE DAY.
--- NOTE | 2019-08-04 00:10 | NUR ---
rt recieving rocephin & Azithromycin IV & he co pain & swelling at IV sit rt forearm. elevated arm & no helpful effect. DC IV restarted IV lt wrist 22 g & IV flushed without difficulty. When started to run antibiotic PT co pain & area had swelling along vein. Stopped fluid & will attempt to establish IV access elsewhere. Cherie RN agreed to attempt IV access.
[2019-08-04 04:32] LABS: BASOPHILS ABSOLUTE AUTO 0.06 K/mm3 (0.00-0.23); BASOPHILS PERCENT AUTO 1 % (0-2); EOSINOPHILS ABSOLUTE AUTO 0.33 K/mm3 (0.00-0.68); EOSINOPHILS PERCENT AUTO 3 % (0-6); Hematocrit 34.5 % (37.0-53.0); Hemoglobin 11.1 g/dL (13.5-17.5); IMMATURE GRAN ABSOLUTE AUTO 0.03 K/mm3 (0.00-0.10); IMMATURE GRAN PERCENT AUTO 0 % (0-1); LYMPHOCYTES ABSOLUTE AUTO 1.25 K/mm3 (0.84-5.20); LYMPHOCYTES PERCENT AUTO 12 % (21-46); MONOCYTES PERCENT AUTO 6 % (4-13); Mean Corpuscular HGB 28.2 pg (26.0-34.0); Mean Corpuscular HGB Conc 32.2 g/dL (31.5-36.5); Mean Corpuscular Volume 88 fL (80-100); Mean Platelet Volume 9.5 fL (9.1-12.4); NEUTROPHILS ABSOLUTE AUTO 8.24 K/mm3 (1.96-9.15); NEUTROPHILS PERCENT AUTO 78 % (41-73); Platelet Count 274 K/mm3 (150-400); RDW Standard Deviation 48.8 fL (35.1-46.3); Red Blood Cell Count 3.94 M/mm3 (4.30-5.90); White Blood Cell Count 10.51 K/mm3 (4.00-11.30)
[2019-08-04 04:52] LABS: Albumin, Blood 2.6 g/dL (3.4-5.0); Anion Gap 8 mmol/L (6-16); Blood Urea Nitrogen 18 mg/dL (8-24); Bun/Creatinine Ratio 15.7 (12.0-20.0); CO2, Blood 23 mmol/L (21-32); Calcium, Blood 8.2 mg/dL (8.5-10.1); Chloride, Blood 111 mmol/L (98-108); Creatinine, Blood 1.15 mg/dL (0.60-1.20); Glomerular Filtration Rate >60 (60-); Glucose, Blood 109 mg/dL (70-99); Phosphorus, Blood 3.1 mg/dL (2.5-4.9); Potassium, Blood 3.7 mmol/L (3.5-5.5); Sodium, Blood 142 mmol/L (136-145)
--- NOTE | 2019-08-04 05:13 | NUR ---
PT continued on IV antibiotics after restarting IV with ultrasound. TKO IV fluids this AM as per order x 1 day IV fluids. PT denies acute distress. Stroud care given & urine now clear & colorless. Continues on room air, covid 19 test results pending. Much less coughing this shift.
--- NOTE | 2019-08-04 17:05 | NUR ---
SHIFT SUMMARY-IS IS A/O PLESANT AND COOPERATIVE. HE HAS A CHRONIC TAYLOR THAT IS PATIENT AND DRAINING WELL. HE WAS UP TO THE RESTROOM THIS SHIFT AND HAD A BM. HIS URINE CULTURE CAME BACK AND DR ADJUSTED HIS IV ANTIBIOTICS. HE IS EATING AND DRINKING WELL.
--- NOTE | 2019-08-05 04:59 | NUR ---
COVID-19 NEGATIVE COVID RESULTS POSTED TO PT CHART THIS AM AT 0300. PT NEGATIVE FOR COVID. CONFIRMED RESULTS WITH CHEST PAIN COORDINATOR. AREA SAFETY MANAGER ESTELA HOLLIDAY RN NOTIFIED. CONTACT PRECAUTIONS DC'D.
--- NOTE | 2019-08-05 05:46 | NUR ---
SHIFT SUMMARY NO ACUTE CHAGES TO REPORT THIS SHIFT, PT HAS RESTED MOST OF THE NIGHT AND HAS DENIED NEEDS. TAYLOR IN PLACE PATENT AND DRAINING. PT A/OX3-4. FORGETFUL TO SOME THINGS LIKE HIS MEDICATIONS. HAD A DIFFICULT TIME GRASPING HIS MEDICATION SCHEDULE WHILE IN THE HOSPITAL. PT WAS REQUESTING MEDICATIONS AT HS THAT HE HAD ALREADY TAKEN URING THE DAYTIME. TRIED TO EXPLAIN TO PT THAT HE HAD ALREADY TAKEN HIS DAYTIME MEDICATIONS BUT HE HAD A DIFFICULT TIME UNDERSTANDING. PT HAS BEEN PLESANT AND COOPERATIVE. IV ABX TO BE CONTINUED ON DAYSHIFT. COVID RESULTS IN AND PT IS NEGATIVE. PT HOPING FOR DC SOON. BED IN LOWEST POSITION, CALL LIGHT WITHIN REACH. WILL CONTINUE TO MONITOR AND REPORT TO ONCOMING RN.
[2019-08-05] MEDS ORDERED: SACC250C PO (12:10)
[2019-08-05] MEDS ORDERED: LEVO750 PO (12:10)
--- NOTE | 2019-08-05 14:56 | NUR ---
DISCHARGE SUMMARY PT AXO, PLEASANT AND COOPERATIVE WITH CARE. IV DC'D AND BELONGINGS RETURNED. DC MED REC FAXED TO [facility], JEANNE TEAM. HARD SCRIPTS GIVEN TO PATIENT PER REQUEST. DISCHARGE COMPLETED AT [facility] WITH SPOUSE. ALL QUESTIONS ANSWERED. PT AGREES TO FOLLOW UP WITH PCP AT [facility].
== END 2019-08-05 12:59 | disposition home or self-care (01) | DRG 698 ==
LOC: ER 21:52 → MEDS 08-03 01:03
PROVIDERS: Emergency Medicine; Family Medicine; ADMIT Internal Medicine
PROC: 8E0ZXY6 Isolation (ICD-10-PCS; principal; 2019-08-02)
DX: T83.511A Infection and inflammatory reaction due to indwelling urethral catheter, initial encounter (principal); A41.81 Sepsis due to Enterococcus; J13 Pneumonia due to Streptococcus pneumoniae; R65.20 Severe sepsis without septic shock; A41.51 Sepsis due to Escherichia coli [E. coli]; I82.409 Acute embolism and thrombosis of unspecified deep veins of unspecified lower extremity; J44.0 Chronic obstructive pulmonary disease with (acute) lower respiratory infection; N39.0 Urinary tract infection, site not specified; Z79.82 Long term (current) use of aspirin; Z96.653 Presence of artificial knee joint, bilateral; Z87.891 Personal history of nicotine dependence; I48.0 Paroxysmal atrial fibrillation; N18.3 Chronic kidney disease, stage 3 (moderate); I12.9 Hypertensive chronic kidney disease with stage 1 through stage 4 chronic kidney disease, or unspecified chronic kidney disease; D64.9 Anemia, unspecified; H91.90 Unspecified hearing loss, unspecified ear
CPT/HCPCS: 0099U; 36415; 36600; 51702; 71045; 80048; 80053; 80069; 81001; 82803; 83605; 83880; 84484; 85025; 87040; 87070; 87077; 87086; 87186; 87205; 93005; 93010; 94640; 94644; 94760; 96365-59; 96367; 99285-25; A9270; J0456; J0696; J1956; J7030; J7050; J7120; U0003

== ENCOUNTER 2019-09-03 07:16 | Emergency (ER) | payer OTHER, MEDICARE ==
[~2019-09-03] VITALS: Ht 188 cm; Wt 105.2 kg
[~2019-09-03 07:16] MED LIST changes: +ASPI81CH PO; +CEFP200 PO; +LEVO750 PO; +LOSA25 PO; +ROFL500T PO; +Vitamin D2000 UNIT PO
[2019-09-03 08:05] LABS: Source, Urine Catheter
[2019-09-03 08:08] LABS: Bilirubin, Urine Neg (Neg); Blood, Urine 5+ (Neg); Glucose Qualitative, Urine Neg (Neg); Ketones, Urine 1+ (Neg); Leukocyte Esterase, Urine 2+ (Neg); Nitrite, Urine Neg (Neg); Protein, Urine 2+ (Neg); Specific Gravity, Urine 1.025 (1.003-1.022); Urobilinogen, Urine NORM (Normal)
[2019-09-03 08:22] LABS: Appearance, Urine Hazy (Clear); Color, Urine Brown (P-Yellow)
[2019-09-03 08:25] LABS: Calcium, Ionized (POC) 1.23 mmol/L (1.10-1.46); Chloride (POC) 107 mmol/L (98-108); Creatinine (POC) 1.7 mg/dL (0.8-1.3); Glucose (ISTAT POC) 132 mg/dL (70-99); Hemoglobin (POC) 14.6 g/dL (13.5-17.5); Potassium (POC) 3.9 mmol/L (3.5-5.5); Sodium (POC) 141 mmol/L (135-148); Total CO2 (POC) 22 mmol/L (21-32)
[2019-09-03 08:27] LABS: Bacteria Mod /hpf; Red Blood Cells, Urine 50-100 /hpf (0-2); Squamous Epithelial Cells Rare /hpf (Few)
[2019-09-03 08:34] LABS: Uric Acid Crystals Mod /hpf
== END 2019-09-03 09:30 | disposition home or self-care (01) ==
LOC: ER 07:16
PROVIDERS: Emergency Medicine
DX: T83.098A Other mechanical complication of other urinary catheter, initial encounter (principal); Z88.5 Allergy status to narcotic agent; Z88.8 Allergy status to other drugs, medicaments and biological substances; Z91.048 Other nonmedicinal substance allergy status; Z79.899 Other long term (current) drug therapy; Z79.82 Long term (current) use of aspirin; Z79.2 Long term (current) use of antibiotics; J44.9 Chronic obstructive pulmonary disease, unspecified; I10 Essential (primary) hypertension; I48.91 Unspecified atrial fibrillation; Z86.718 Personal history of other venous thrombosis and embolism; Z87.891 Personal history of nicotine dependence
CPT/HCPCS: 51702; 80047; 81001; 85014; 87086; 99283-25

== ENCOUNTER 2020-01-21 22:39 | Emergency (ER) | payer OTHER, MEDICARE ==
[~2020-01-21] VITALS: Ht 188 cm; Wt 106.6 kg
[2020-01-21 23:26] LABS: Source, Urine Catheter
[2020-01-21 23:30] LABS: BASOPHILS ABSOLUTE AUTO 0.07 K/mm3 (0.00-0.23); BASOPHILS PERCENT AUTO 1 % (0-2); EOSINOPHILS ABSOLUTE AUTO 0.27 K/mm3 (0.00-0.68); EOSINOPHILS PERCENT AUTO 3 % (0-6); Hematocrit 42.6 % (37.0-53.0); Hemoglobin 13.8 g/dL (13.5-17.5); IMMATURE GRAN ABSOLUTE AUTO 0.03 K/mm3 (0.00-0.10); IMMATURE GRAN PERCENT AUTO 0 % (0-1); LYMPHOCYTES ABSOLUTE AUTO 1.57 K/mm3 (0.84-5.20); LYMPHOCYTES PERCENT AUTO 17 % (21-46); MONOCYTES ABSOLUTE AUTO 0.75 K/mm3 (0.16-1.47); MONOCYTES PERCENT AUTO 8 % (4-13); Mean Corpuscular HGB 28.3 pg (26.0-34.0); Mean Corpuscular HGB Conc 32.4 g/dL (31.5-36.5); Mean Corpuscular Volume 88 fL (80-100); Mean Platelet Volume 9.9 fL (9.1-12.4); NEUTROPHILS ABSOLUTE AUTO 6.71 K/mm3 (1.96-9.15); NEUTROPHILS PERCENT AUTO 71 % (41-73); Platelet Count 265 K/mm3 (150-400); RDW Coefficient Variation 14.2 % (11.7-14.2); RDW Standard Deviation 45.4 fL (35.1-46.3); Red Blood Cell Count 4.87 M/mm3 (4.30-5.90)
[2020-01-21 23:32] LABS: Appearance, Urine Turbid (Clear); Bilirubin, Urine Neg (Neg); Blood, Urine 2+ (Neg); Color, Urine Amber (P-Yellow); Glucose Qualitative, Urine Neg (Neg); Ketones, Urine 1+ (Neg); Leukocyte Esterase, Urine 3+ (Neg); Nitrite, Urine Pos (Neg); Protein, Urine 3+ (Neg); Urobilinogen, Urine NORM (Normal)
[2020-01-21 23:38] LABS: Amorphous Light (0-Heavy); Bacteria Many /hpf; Squamous Epithelial Cells Not Seen /hpf (Few); White Blood Cells, Urine 50-100 /hpf (0-5)
[2020-01-21 23:39] LABS: Triple Phosphate Crystals Few /hpf
[2020-01-21 23:49] LABS: Albumin, Blood 3.5 g/dL (3.4-5.0); Albumin/Globulin Ratio 1.1 (0.8-1.8); Bilirubin, Total 0.3 mg/dL (0.1-1.0); Bun/Creatinine Ratio 19.2 (12.0-20.0); Calcium, Blood 9.2 mg/dL (8.5-10.1); Creatinine, Blood 1.3 mg/dL (0.60-1.20); Globulin, Blood 3.3 g/dL (2.2-4.0); Potassium, Blood 3.8 mmol/L (3.5-5.5); Total Protein, Blood 6.8 g/dL (6.4-8.2)
== END 2020-01-22 00:39 | disposition home or self-care (01) ==
LOC: ER 22:39
PROVIDERS: Emergency Medicine
DX: N39.0 Urinary tract infection, site not specified (principal); Z46.6 Encounter for fitting and adjustment of urinary device; I10 Essential (primary) hypertension; I48.91 Unspecified atrial fibrillation; J44.9 Chronic obstructive pulmonary disease, unspecified; Z87.891 Personal history of nicotine dependence; Z88.4 Allergy status to anesthetic agent; Z88.5 Allergy status to narcotic agent; Z79.01 Long term (current) use of anticoagulants; Z88.8 Allergy status to other drugs, medicaments and biological substances; Z79.52 Long term (current) use of systemic steroids; Z79.82 Long term (current) use of aspirin; Z79.899 Other long term (current) drug therapy; Z86.718 Personal history of other venous thrombosis and embolism
CPT/HCPCS: 36415; 51702; 80053; 81001; 85025; 96365; 99283-25; J0696

== ENCOUNTER 2020-02-26 20:28 | Emergency (ER) | payer OTHER, MEDICARE ==
[~2020-02-26] VITALS: Ht 188 cm; Wt 108.9 kg
[2020-02-26 21:58] LABS: Source, Urine Catheter
[2020-02-26 22:02] LABS: Bilirubin, Urine Neg (Neg); Blood, Urine 4+ (Neg); Glucose Qualitative, Urine Neg (Neg); Ketones, Urine Neg (Neg); Leukocyte Esterase, Urine 3+ (Neg); Nitrite, Urine Pos (Neg); Protein, Urine 1+ (Neg); Urobilinogen, Urine NORM (Normal)
[2020-02-26 22:03] LABS: Appearance, Urine Hazy (Clear); Color, Urine Yellow (P-Yellow)
[2020-02-26 22:10] LABS: Bacteria Many /hpf; Red Blood Cells, Urine 25-50 /hpf (0-2); Squamous Epithelial Cells Not Seen /hpf (Few); White Blood Cells, Urine TNTC /hpf (0-5)
[2020-02-26] MEDS ORDERED: Macrobid 100 M100 MG PO (22:20)
== END 2020-02-26 22:30 | disposition home or self-care (01) ==
LOC: ER 20:28
PROVIDERS: Emergency Medicine
DX: N39.0 Urinary tract infection, site not specified (principal); T83.098A Other mechanical complication of other urinary catheter, initial encounter; J44.9 Chronic obstructive pulmonary disease, unspecified; I10 Essential (primary) hypertension; I48.91 Unspecified atrial fibrillation; Z87.442 Personal history of urinary calculi; Z86.718 Personal history of other venous thrombosis and embolism; Z87.891 Personal history of nicotine dependence; Z88.4 Allergy status to anesthetic agent; Z88.5 Allergy status to narcotic agent; Z88.8 Allergy status to other drugs, medicaments and biological substances; Z79.899 Other long term (current) drug therapy; Z79.82 Long term (current) use of aspirin; Z79.51 Long term (current) use of inhaled steroids
CPT/HCPCS: 51702; 81001; 87077; 87086; 87186; 99283-25

== ENCOUNTER 2020-03-23 12:45 | Inpatient (IN) | payer OTHER, MEDICARE ==
[~2020-03-23] VITALS: Ht 188 cm; Wt 108.1 kg
[~2020-03-23 12:45] MED LIST changes: +Macrobid 100 M100 MG PO; +SYMBICORT 160-4.6 GM INH
[2020-03-23 13:38] LABS: BASOPHILS ABSOLUTE AUTO 0.05 K/mm3 (0.00-0.23); BASOPHILS PERCENT AUTO 0 % (0-2); EOSINOPHILS ABSOLUTE AUTO 0.05 K/mm3 (0.00-0.68); EOSINOPHILS PERCENT AUTO 0 % (0-6); Hematocrit 45.2 % (37.0-53.0); Hemoglobin 14.9 g/dL (13.5-17.5); IMMATURE GRAN ABSOLUTE AUTO 0.09 K/mm3 (0.00-0.10); IMMATURE GRAN PERCENT AUTO 0 % (0-1); LYMPHOCYTES ABSOLUTE AUTO 1.33 K/mm3 (0.84-5.20); LYMPHOCYTES PERCENT AUTO 6 % (21-46); MONOCYTES ABSOLUTE AUTO 1.27 K/mm3 (0.16-1.47); MONOCYTES PERCENT AUTO 6 % (4-13); Mean Corpuscular HGB 28.9 pg (26.0-34.0); Mean Corpuscular Volume 88 fL (80-100); Mean Platelet Volume 10.3 fL (9.1-12.4); NEUTROPHILS ABSOLUTE AUTO 18.03 K/mm3 (1.96-9.15); NEUTROPHILS PERCENT AUTO 87 % (41-73); Platelet Count 284 K/mm3 (150-400); RDW Coefficient Variation 13.2 % (11.7-14.2); RDW Standard Deviation 42.9 fL (35.1-46.3); Red Blood Cell Count 5.16 M/mm3 (4.30-5.90); White Blood Cell Count 20.82 K/mm3 (4.00-11.30)
[2020-03-23 13:59] LABS: Albumin, Blood 3.5 g/dL (3.4-5.0); Bun/Creatinine Ratio 19.2 (12.0-20.0); Calcium, Blood 9.1 mg/dL (8.5-10.1); Creatinine, Blood 1.25 mg/dL (0.60-1.20); Globulin, Blood 3.4 g/dL (2.2-4.0); Potassium, Blood 4.1 mmol/L (3.5-5.5); Total Protein, Blood 6.9 g/dL (6.4-8.2)
[2020-03-23 15:24] LABS: Source, Urine Urostomy Bag
[2020-03-23 15:31] LABS: Appearance, Urine Cloudy (Clear); Bilirubin, Urine Neg (Neg); Blood, Urine 2+ (Neg); Color, Urine Yellow (P-Yellow); Glucose Qualitative, Urine Neg (Neg); Ketones, Urine Neg (Neg); Leukocyte Esterase, Urine 3+ (Neg); Nitrite, Urine Pos (Neg); Protein, Urine 2+ (Neg); Urobilinogen, Urine NORM (Normal)
[2020-03-23 15:44] LABS: White Blood Cells, Urine 25-50 /hpf (0-5)
[2020-03-23 15:45] LABS: Amorphous Heavy (0-Heavy); Bacteria Many /hpf; Red Blood Cells, Urine 0-2 /hpf (0-2); Triple Phosphate Crystals Few /hpf
[2020-03-23 15:46] LABS: Squamous Epithelial Cells Not Seen /hpf (Few)
[2020-03-23 16:21] LABS: Influenza A, PCR Negative (NEGATIVE); Influenza B, PCR Negative (NEGATIVE); Resp Syncytial Virus, PCR Negative (NEGATIVE); SARS-Cov-2 (COVID-19) PCR, MMC Negative (NEGATIVE)
[2020-03-24 06:01] LABS: BASOPHILS ABSOLUTE AUTO 0.03 K/mm3 (0.00-0.23); BASOPHILS PERCENT AUTO 0 % (0-2); EOSINOPHILS ABSOLUTE AUTO 0.17 K/mm3 (0.00-0.68); EOSINOPHILS PERCENT AUTO 2 % (0-6); Hematocrit 40.7 % (37.0-53.0); Hemoglobin 13.1 g/dL (13.5-17.5); IMMATURE GRAN ABSOLUTE AUTO 0.03 K/mm3 (0.00-0.10); IMMATURE GRAN PERCENT AUTO 0 % (0-1); LYMPHOCYTES ABSOLUTE AUTO 1.23 K/mm3 (0.84-5.20); LYMPHOCYTES PERCENT AUTO 15 % (21-46); MONOCYTES ABSOLUTE AUTO 0.67 K/mm3 (0.16-1.47); MONOCYTES PERCENT AUTO 8 % (4-13); Mean Corpuscular HGB 28.5 pg (26.0-34.0); Mean Corpuscular HGB Conc 32.2 g/dL (31.5-36.5); Mean Corpuscular Volume 89 fL (80-100); Mean Platelet Volume 10.3 fL (9.1-12.4); NEUTROPHILS ABSOLUTE AUTO 6.32 K/mm3 (1.96-9.15); NEUTROPHILS PERCENT AUTO 75 % (41-73); Platelet Count 242 K/mm3 (150-400); RDW Coefficient Variation 13.5 % (11.7-14.2); RDW Standard Deviation 43.8 fL (35.1-46.3); White Blood Cell Count 8.45 K/mm3 (4.00-11.30)
[2020-03-24 06:25] LABS: Anion Gap 5 mmol/L (6-16); Blood Urea Nitrogen 23 mg/dL (8-24); Bun/Creatinine Ratio 18.9 (12.0-20.0); CO2, Blood 29 mmol/L (21-32); Calcium, Blood 8.4 mg/dL (8.5-10.1); Chloride, Blood 109 mmol/L (98-108); Creatinine, Blood 1.22 mg/dL (0.60-1.20); Glomerular Filtration Rate >60 (60-); Glucose, Blood 103 mg/dL (70-99); Sodium, Blood 143 mmol/L (136-145)
--- NOTE | 2020-03-24 06:38 | NUR ---
SHIFT SUMMARY PT WAS A NEW ADMIT DURING THE NIGHT, ARRIVING ON THE FLOOR AT 1956. HE WAS ADMITTED FOR UTI AND SEPSIS. HE IS A&O X 4, INDEPENDENT IN THE ROOM. PT HAS A CHRONIC TAYLOR IN PLACE. NO C/O PAIN, NAUSEA OR SOB SINCE ADMISSION. VITAL SIGNS STABLE. PT RECEIVING NS @ 75 ML/HR. NO ACUTE CHANGES IN PT CONDITION NOTED SINCE ADMISSION. WILL CONTINUE TO MONITOR AND TREAT PER EMAR UNTIL HAND OFF TO DAY SHIFT RN.
--- NOTE | 2020-03-24 11:22 | NUR ---
HE HAS ASKED HIS BY PHONE TO BRING IN HIS DALIRESP WHEN SHE COMES TODAY. ROUNDED. ANTIBIOTICS ORDERED. HIS CHRONIC TAYLOR IS PATENT. HE HAD A BM THIS MORNING.THE 1 LITER OF IVF FINISHED. HE HAS A SCAB ON HIS L GREAT TOES WHERE HE SAYS HE PULLED SKIN FROM AT THE BASE OF THE NAIL. HE AMBULATES IN ROOM WITH SBA.
--- NOTE | 2020-03-24 13:52 | NUR ---
HE IS VERY PLEASANT AND HAS A POSITIVE ATTITUDE. BP CAME DOWN TO NORMAL AFTER HIS AM CARDIZEM. TAYLOR PATENT. HE HAD A BM THIS MORNING. NO FEVER. HIS PLANS TO VISIT THIS AFTERNOON.
--- NOTE | 2020-03-24 18:12 | NUR ---
HE HAS RESTED COMFORTABLY. NO FEVER. BP HIGH THIS MORNING BUT WNL T/O THE DAY AFTER HIS ANTIHYPERTENSIVE. TAYLOR PATENT. URINE YELLOW. HIS BROUGHT IN HIS DALIRESP. IT WAS VERIFIED AND ADMINISTERED. HE HAS NO COMPLAINTS.
--- NOTE | 2020-03-25 07:31 | NUR ---
SHIFT SUMMARY PT IS AN 84 Y/O MALE, ADMITTED FOR SEPSIS R/T UTI. HE IS A&O X 4, 1PA TO THE BATHROOM. CHRONIC INDWELLING TAYLOR IN PLACE, PATENT AND DRAINING. VITAL SIGNS STABLE. NO C/O PAIN, NAUSEA OR SOB. NO ACUTE CHANGES IN PT CONDITION NOTED DURING THE NIGHT. REPORT GIVEN TO ONCOMING RN.
[2020-03-25] MEDS ORDERED: AZIT500 PO (10:57)
[2020-03-25] MEDS ORDERED: SULTRISS PO (10:57)
[2020-03-25] MEDS ORDERED: VISBIOME PROBIOTIC PO (10:58)
--- NOTE | 2020-03-25 15:03 | NUR ---
DISCHARGED AT 1415 WITH BELONGINGS AND INSTRUCTIONS. AFTER A NEW IV START HE RECEIVED HIS LAST DOSE OF IV ROCEPHIN THIS MORNING. HE [facility] CENTER ASSOC[facility] IS AWARE. HE WAS GIVEN A NEW LEG BAG AND ATTACHED IT TO HIS TAYLOR CATHETER BEFORE HE GOT DRESSED. NO COMPLAINTS TODAY. VSS AND HE WAS HAPPY TO GO HOME.
== END 2020-03-25 14:15 | disposition home or self-care (01) | DRG 698 ==
LOC: ER 12:45 → MEDS 19:38
PROVIDERS: Emergency Medicine; Nurse Practitioner Acute Care; ADMIT Internal Medicine
DX: T83.592A Infection and inflammatory reaction due to indwelling ureteral stent, initial encounter (principal); A41.9 Sepsis, unspecified organism; J18.9 Pneumonia, unspecified organism; N39.0 Urinary tract infection, site not specified; J44.0 Chronic obstructive pulmonary disease with (acute) lower respiratory infection; I12.9 Hypertensive chronic kidney disease with stage 1 through stage 4 chronic kidney disease, or unspecified chronic kidney disease; N18.30 Chronic kidney disease, stage 3 unspecified; Z20.828 Contact with and (suspected) exposure to other viral communicable diseases; I48.0 Paroxysmal atrial fibrillation; Z87.891 Personal history of nicotine dependence; K59.09 Other constipation; Z86.718 Personal history of other venous thrombosis and embolism
CPT/HCPCS: 0241U; 36415; 71045; 80048; 80053; 81001; 83605; 85025; 87086; 94640; 94760; 96361; 96365; 99285-25; A9270; A9270-GY; J0696; J7030; J7050

== ENCOUNTER 2020-12-25 18:52 | Emergency (ER) | payer OTHER ==
[~2020-12-25] VITALS: Ht 188 cm; Wt 108.9 kg
[~2020-12-25 18:52] MED LIST changes: +ASMANEX HFA13 G4 INH; +AZIT500 PO; +Aspir 8181 MG PO; +BUDESONIDE0.5 MG/2 M NEB; +Docusate Sodiu250 MG PO; +LACT PO; +NITR100CA PO; +PRED20 PO; +STIOLTO RESPIMAT4 G1 INH; +SULTRISS PO; +VISBIOME PROBIOTIC PO; +VITAMIN D31000 UNI1 PO
[2020-12-25 19:32] LABS: Hemoglobin 14.1 g/dL (13.5-17.5); Mean Corpuscular HGB 30.9 pg (26.0-34.0); Mean Corpuscular HGB Conc 32.8 g/dL (31.5-36.5); Mean Corpuscular Volume 94 fL (80-100); Mean Platelet Volume 10.3 fL (9.1-12.4); Platelet Count 213 K/mm3 (150-400); RDW Coefficient Variation 14.2 % (11.7-14.2); RDW Standard Deviation 48.8 fL (35.1-46.3); Red Blood Cell Count 4.57 M/mm3 (4.30-5.90)
[2020-12-25 19:47] LABS: Albumin, Blood 3.4 g/dL (3.4-5.0); Bilirubin, Total 0.8 mg/dL (0.1-1.0); Bun/Creatinine Ratio 16.5 (12.0-20.0); Calcium, Blood 8.7 mg/dL (8.5-10.1); Creatinine, Blood 2.43 mg/dL (0.60-1.20); Globulin, Blood 3.5 g/dL (2.2-4.0); Potassium, Blood 4.5 mmol/L (3.5-5.5); Total Protein, Blood 6.9 g/dL (6.4-8.2); Troponin I 0.09 ng/mL (0.000-0.040)
[2020-12-25 20:44] LABS: BAND PERCENT MAN 9 % (0-8); BASOPHILS ABSOLUTE MAN 0.17 K/mm3 (0.00-0.23); BASOPHILS PERCENT MAN 1 % (0-2); EOSINOPHILS PERCENT MAN 0 % (0-6); LYMPHOCYTES ABSOLUTE MAN 0.52 K/mm3 (0.84-5.20); LYMPHOCYTES PERCENT MAN 3 % (21-46); MONOCYTES ABSOLUTE MAN 0.35 K/mm3 (0.16-1.47); MONOCYTES PERCENT MAN 2 % (4-13); MYELOCYTE ABSOLUTE MAN 0.35 K/mm3 (0.00-0.00); MYELOCYTE PERCENT MAN 2 % (0-0); NEUTROPHILS ABSOLUTE MAN 16.19 K/mm3 (1.96-9.15); SEG NEUTROPHILS PERCENT MAN 83 % (41-73); TOTAL CELLS COUNTED 100
== END 2020-12-25 22:37 | disposition home or self-care (01) ==
LOC: ER 18:52
PROVIDERS: Emergency Medicine
DX: N17.9 Acute kidney failure, unspecified (principal); E86.0 Dehydration; N39.0 Urinary tract infection, site not specified; R77.8 Other specified abnormalities of plasma proteins; I10 Essential (primary) hypertension; J44.9 Chronic obstructive pulmonary disease, unspecified; I48.91 Unspecified atrial fibrillation; Z88.8 Allergy status to other drugs, medicaments and biological substances; Z88.5 Allergy status to narcotic agent; Z91.048 Other nonmedicinal substance allergy status; Z79.899 Other long term (current) drug therapy; Z79.82 Long term (current) use of aspirin; Z87.891 Personal history of nicotine dependence
CPT/HCPCS: 71045; 80053; 83880; 84484; 85025; 93005; 93010; 96365; 99285-25; A9270; J0696

== ENCOUNTER 2021-07-26 10:34 | Inpatient (IN) | payer OTHER ==
[~2021-07-26] VITALS: Ht 188 cm; Wt 116.5 kg
[~2021-07-26 10:34] MED LIST changes: +ACIDOPHILUS1 EAC3 PO; +Amoxicillin500 MG PO
[2021-07-26 11:20] LABS: BASOPHILS ABSOLUTE AUTO 0.06 K/mm3 (0.00-0.23); BASOPHILS PERCENT AUTO 1 % (0-2); EOSINOPHILS PERCENT AUTO 1 % (0-6); Hematocrit 40.9 % (37.0-53.0); Hemoglobin 12.9 g/dL (13.5-17.5); IMMATURE GRAN ABSOLUTE AUTO 0.08 K/mm3 (0.00-0.10); IMMATURE GRAN PERCENT AUTO 1 % (0-1); LYMPHOCYTES ABSOLUTE AUTO 1.39 K/mm3 (0.84-5.20); LYMPHOCYTES PERCENT AUTO 14 % (21-46); MONOCYTES ABSOLUTE AUTO 0.71 K/mm3 (0.16-1.47); MONOCYTES PERCENT AUTO 7 % (4-13); Mean Corpuscular HGB 28.6 pg (26.0-34.0); Mean Corpuscular HGB Conc 31.5 g/dL (31.5-36.5); Mean Corpuscular Volume 91 fL (80-100); NEUTROPHILS ABSOLUTE AUTO 7.71 K/mm3 (1.96-9.15); NEUTROPHILS PERCENT AUTO 77 % (41-73); Platelet Count 206 K/mm3 (150-400); RDW Coefficient Variation 14.2 % (11.7-14.2); RDW Standard Deviation 47.2 fL (35.1-46.3); Red Blood Cell Count 4.51 M/mm3 (4.30-5.90); White Blood Cell Count 10.05 K/mm3 (4.00-11.30)
[2021-07-26 11:37] LABS: Albumin, Blood 3.3 g/dL (3.4-5.0); Bilirubin, Direct 0.1 mg/dL (0.0-0.3); Bilirubin, Indirect 0.4 mg/dL (0.1-0.7); Bilirubin, Total 0.5 mg/dL (0.1-1.0); Bun/Creatinine Ratio 20.8 (12.0-20.0); Creatinine, Blood 1.49 mg/dL (0.60-1.20); Globulin, Blood 3.2 g/dL (2.2-4.0); Magnesium, Blood 2.3 mg/dL (1.6-2.4); Potassium, Blood 3.7 mmol/L (3.5-5.5); Total Protein, Blood 6.5 g/dL (6.4-8.2)
[2021-07-26 12:37] LABS: Influenza A, PCR NEGATIVE (NEGATIVE); Influenza B, PCR NEGATIVE (NEGATIVE); Resp Syncytial Virus, PCR NEGATIVE (NEGATIVE); SARS-Cov-2 (COVID-19) PCR, MMC NEGATIVE (NEGATIVE)
--- NOTE | 2021-07-26 18:49 | NUR ---
ARRIVAL TO PCU/SHIFT SUMMARY PATIENT ARRIVED FROM ED AT APPROX 1750 VIA GURNEY AND TRANSFERED TO PCU BED WITH A ONE PERSON ASSIST. VSS. SPO2 >90% ON 2L NC. PATIENT WEARS 2L NC BASELINE AT NIGHT. TELE AFIB 100-120S. PATIENT HAS DILTIAZEM DRIP INFUSING AT 15MLS/HR. PATIENT ALERT AND ORIENTED X4. NEURO INTACT. PERRLA. PATIENT REPORTS NO CHEST PAIN/PRESSURE. PATIENT HAS +2 EDEMA IN LOWER EXTREMITIES. PATIENT HAS EDEMA IN UPPER EXTREMITIES, LEFT ARM HAS A FLUID FILLED, AND THIS RN TOOK A PICTURE AND IS IN THE CHART. CAP REFILL <3 SECONDS. STRONG PULSES. PATIENT LUNG SOUNDS CLEAR. PATIENT REPORT SHORTNESS OF BREATH WITH EXERTION. ABD FIRM AND MODERATELY DISTENDED. PATEINT SKIN HAS SCATTERED BRUSING AND SCABS THROUGHOUT. PATIENT HAS A CHRONIC TAYLOR AND WAS REPLACED ONE WEEK AGO. PLAN IS TO REPLACE TAYLOR SINCE EMELI HAS BEEN ADMITTED AND URINE SAMPLE SENT. WILL INFORM NEXT SHIFT IF THIS RN DOESN'T HAVE TIME BEFORE SHIFT CHANGE. PATIENT IS AT BEDSIDE. PATIENT HAS DENTURES (UPPER AND LOWER) AND GLASSES WITH HIM. PATIENT PERSONAL BELONGINGS IN THE CLOSET. PATIENT IS AWARE OF THE PLAN AND HAS NO QUESTIONS AT THIS TIME. PATIENT SITTING IN BED EATING DINNER. PATIENT ORIENTED TO ROOM AND CALL LIGHT. EMELI EDUCATED ON HOURLY NURSE ROUNDING, AND THAT WE WILL NOT WAKE HIM DURING THE NIGHT IF HE IS SLEEPING, BUT WE WILL STILL BE CHECKING ON HIM. EDUCATED PATIENT ON Q4 HOUR VITAL SIGNS THAT ARE DONE ON THIS UNIT. EDUCATED PATIENT ON THE CURRENT TREATMENT PLAN. WILL CONTINUE TO MONITOR AND PROVIDE CARE UNTIL HAND OFF WITH NEXT SHIFT.
--- NOTE | 2021-07-26 21:33 | NUR ---
AT 1999 WALKED INTO PT'S ROOM WITH TAYLOR CATHETER KIT AND VERIFIED ALLERGIES WITH PATIENT BEFORE CHANGING TAYLOR CATHETER. PT STATED HE HAD LATEX ALLERGY AND THAT THE LEGBAND WOULD LEAVE HIM WITH BLISTERS AFTER 3 DAYS. HE THEN STATED THAT THE LATEX CATHETER KIT WAS THE ONE HE NORMALLY USES. CALLED THE TO CONFIRM THIS AND SHE SAID "I THINK HE USES THE LATEX FREE KITS". BROUGHT IN THE LATEX FREE KIT AND WHEN PULLING OUT THE ACTUAL CATHETER THE PT STATES THAT IT'S THE WRONG COLOR. EXPLAINED TO PT THAT THIS IS THE LATEX FREE KIT; PT STATES THAT THE ORIGINAL LATEX CATHETER KIT WAS THE CORRECT ONE AND THAT THE "OTHER" ONES GAVE HIM A UTI. WE CONFIRMED ONE MORE TIME THAT THE LATEX CATHETER KIT WAS THE CORRECT ONE AND PROCEDED TO CHANGE THE CATHETER UPON AGREEMENT. RN UPDATED PT'S CHART TO INCLUDE LATEX ALLERGY.
--- NOTE | 2021-07-26 22:00 | NUR ---
ASSUMED CARE OF PATIENT AT APPROXIMATELY 1905 FROM LUDIN Mukherjee RN. PATIENT'S WAS AT BEDSIDE BUT LEFT BEFORE GETTING REPORT. PATIENT ALERT AND ORIENTED X4. PATIENT DENIES CHEST PAIN, PAIN ELSEWHERE, DIZZINESS AND NAUSEA. PATIENT AFIB W/ RATE IN THE 90'S; CARDIZEM TURNED DOWN TO 5 DURING BEDSIDE REPORT; OXYGEN SATURATION ABOVE 90% ON 2LPM (BASELINE). OTHER PIV S/L. TAYLOR REPLACED PER PROTOCOL; SEE PREVIOUS NOTE. PATIENT DID REPORT SHORTNESS OF BREATH AT ONE POINT AND RT WAS CALLED FOR PRN INHALER.
[2021-07-26 23:46] LABS: Source, Urine Foley catheter
[2021-07-26 23:56] LABS: Bilirubin, Urine Neg (Neg); Blood, Urine 4+ (Neg); Glucose Qualitative, Urine Neg (Neg); Ketones, Urine Neg (Neg); Leukocyte Esterase, Urine 3+ (Neg); Nitrite, Urine Pos (Neg); Protein, Urine 2+ (Neg); Specific Gravity, Urine 1.025 (1.003-1.022); Urobilinogen, Urine 1+ (Normal)
[2021-07-27 00:06] LABS: Appearance, Urine Hazy (Clear); Color, Urine Yellow (P-Yellow)
[2021-07-27 00:07] LABS: Amorphous Light (0-Heavy); Bacteria Few /hpf; Red Blood Cells, Urine Rare /hpf (0-2); Squamous Epithelial Cells Rare /hpf (Few); White Blood Cells, Urine 25-50 /hpf (0-5)
[2021-07-27 04:13] LABS: BASOPHILS ABSOLUTE AUTO 0.06 K/mm3 (0.00-0.23); BASOPHILS PERCENT AUTO 1 % (0-2); EOSINOPHILS ABSOLUTE AUTO 0.08 K/mm3 (0.00-0.68); EOSINOPHILS PERCENT AUTO 1 % (0-6); Hematocrit 39.7 % (37.0-53.0); Hemoglobin 12.4 g/dL (13.5-17.5); IMMATURE GRAN ABSOLUTE AUTO 0.07 K/mm3 (0.00-0.10); IMMATURE GRAN PERCENT AUTO 1 % (0-1); LYMPHOCYTES ABSOLUTE AUTO 1.12 K/mm3 (0.84-5.20); LYMPHOCYTES PERCENT AUTO 14 % (21-46); MONOCYTES ABSOLUTE AUTO 0.58 K/mm3 (0.16-1.47); MONOCYTES PERCENT AUTO 7 % (4-13); Mean Corpuscular HGB 28.6 pg (26.0-34.0); Mean Corpuscular HGB Conc 31.2 g/dL (31.5-36.5); Mean Corpuscular Volume 92 fL (80-100); Mean Platelet Volume 11.2 fL (9.1-12.4); NEUTROPHILS ABSOLUTE AUTO 6.07 K/mm3 (1.96-9.15); NEUTROPHILS PERCENT AUTO 76 % (41-73); Platelet Count 199 K/mm3 (150-400); RDW Coefficient Variation 14.4 % (11.7-14.2); RDW Standard Deviation 49.1 fL (35.1-46.3); Red Blood Cell Count 4.33 M/mm3 (4.30-5.90); White Blood Cell Count 7.98 K/mm3 (4.00-11.30)
[2021-07-27 04:33] LABS: Bun/Creatinine Ratio 21.9 (12.0-20.0); Calcium, Blood 8.9 mg/dL (8.5-10.1); Creatinine, Blood 1.78 mg/dL (0.60-1.20); Potassium, Blood 4.1 mmol/L (3.5-5.5)
--- NOTE | 2021-07-27 06:42 | NUR ---
ASSUMED PT CARE AT 1900. PT IS ALERT AND ORIENTED X4. PT DENIES ANY CHEST PAIN/PRESSURE. PT IS SOB ON EXERTION AND HAD A BRIEF PERIOD OF DYSPNEA. PT REQUEST BREATHING TREATMENT FEW TIMES TONIGHT. PT HAS AN INTERMITTENT MOIST COUGH THAT CEASES WITH BREATHING TREATMENT. TAYLOR CATHETER CHANGED 2049, SEE PT NOTE FOR DETAILS. PT REFUSED COMPRESSION STOCKINGS. RN ASKED MULTIPLE TIMES IF HE WANTS REPOSITIONED AND HE REFUSED. HR IN THE 100S AFIB.
--- NOTE | 2021-07-27 10:18 | NUR ---
CARE ASSUMPTION THIS RN ASSUMED CARE FROM JORDY RN AND STUDENT RN AT 0700. PATIENT IS ALERT AND ORIENTED X4. NEURO INTACT. VSS. TELE AFIB 110S. DILT DRIP AT 10MLS/HR. PATIENT REPORTS NO CHEST PAIN. STRONG RADIAL AND PEDAL PULSES. EDEMA IN LOWER EXTREMITIES. PATIENT REPORTS SHORTNESS OF BREATH ON AND OFF AND THAT THE BREATHING TREATMENTS HELP. LUNG SOUNDS CLEAR AND DIM, WITH MINIMAL AIR MOVEMENT. ABD IS FIRM MODERATELY DISTENDED ACTIVE BOWEL TONES. SKIN HAS BRUSING SCATTERED THROUGHOUT. CHRONIC FOLLEY CATH IN PLACE DRAINING WITH GRAVITY. SEE SHIFT ASSESSMENT FOR FULL DETAILS. CALL LIGHT IS WITHIN REACH AND BED ALARM ON. WILL CONTINUE TO MONITOR AND PROVIDE CARE.
--- NOTE | 2021-07-27 17:37 | NUR ---
SHIFT SUMMARY PATIENT NEURO REMAINS INTACT. VSS. TELE AFIB 100-130S. CARDIZEM DRIP AT 10MLS/HR. PATIENT EXPERINCES SHORTNESS OF BREATH WITH EXERTION. TAYLOR CATH IN PLACE DRAINING WITH GRAVITY JAYSHREE COLORATION. PATIENT REPORTS NO NEW CONCERNS OR QUESTIONS. VISTED WITH THE PATIENT DURING THE AFTERNOON. NO ACUTE CHANGES. CALL LIGHT WITHIN REACH AND BED IN LOWEST POSITION. WILL CONTINUE TO MONITOR AND PROVIDE CARE UNTIL HAND OFF WITH NEXT SHIFT.
--- NOTE | 2021-07-27 21:32 | NUR ---
ASSUMED CARE OF PATIENT AT APPROXIMATELY 1910 FROM LUDIN Mukherjee RN. PATIENT ALERT AND ORIENTED X4. PATIENT DENIES CHEST PAIN, PAIN ELSEWHERE, DIZZINESS AND NAUSEA. PATIENT AFIB W/ RATE IN THE 90'S; CARDIZEM INFUSING AT 10ML/HR; OXYGEN SATURATION ABOVE 90% ON 2LPM (BASELINE). OTHER PIV S/L. TAYLOR DRAINING AND PATENT; PATIENT INCONTINENT OF STOOL AT START OF SHIFT. PATIENT'S DAUGHTER AND GREAT GRANDSON VISITED FOR A FEW MINUTES.
[2021-07-28 04:11] LABS: Bun/Creatinine Ratio 29.3 (12.0-20.0); Calcium, Blood 9.1 mg/dL (8.5-10.1); Creatinine, Blood 1.84 mg/dL (0.60-1.20); Potassium, Blood 4.4 mmol/L (3.5-5.5)
--- NOTE | 2021-07-28 06:38 | NUR ---
PATIENT SLEPT ABOUT SEVEN HOURS. HEART RATE 100-110'S MOST OF NIGHT. NO OTHER ACUTE CHANGES TO REPORT.
--- NOTE | 2021-07-28 09:50 | NUR ---
CARE ASSUMPTION THIS RN ASSUMED CARE AT 0700 FROM JORDY GUERRERO. PATIENT IS ALERT AND ORIENTED X4. PERRLA. VSS. SPO2 >90% ON 2L NC. TELE AFIB 100-120. CARDIZEM DRIP AT 10MLS/HR. PATIENT REPORTS NO CHEST PAIN/PRESSURE. STRONG RADAIL AND PEDIS PULSES. CAP REFILL <3SECONDS. LUNG SOUNDS UPPER LOBES WHEEZE, LOWER DIM. PATIENT REPORTS NO SHORTNESS OF BREATH WITH AM. ABD IS MODERATELY DISTENDED, AND PATIENT STATES NORMAL, FIRM, ACTIVE, AND NONTENDER. SKIN IS CLEAN DRY AND INTACT. THERE IS SOME SCATTERED BRUSING THROUGHOUT. TAYLOR CATH IN PLACE DRIANING WITH GRAVITY YELLOW COLORATION.SEE SHIFT ASSESSMENT FOR FULL DETAILS. PATIENT HAD A BREATHING TREATMENT THIS AM. PLAN IS TO CONTROL HEART RATE AND TITRATE OFF OF CARDIZEM DRIP. PATIENT ABLE TO PERFORM OWN ADLS ONCE GIVEN WASH CLOTH TO WASH FACE. PATIENT ABLE TO REPOSITION SELF IN BED. AM CARE DONE. CATH CARE PERFORMED. CALL LIGHT WITHIN REACH AND BED IN LOWEST POSITION. WILL CONTINUE TO MONITOR AND PROVIDE CARE UNTIL.
--- NOTE | 2021-07-28 17:22 | NUR ---
SHIFT SUMMARY PATIENT NEURO REMAINS INTACT. VSS. TELE AFIB 90-115. PATIENT CARDIZEM DRIP STOPPED AT 1545 PER MD MENA ORDERS. ORAL MEDICATION FOR RATE CONTROL. PATIENT HAS HAD TWO INCONTINENT EPISODES OF STOOL THIS SHIFT. PATIENT ISN'T AWARE OF WHEN HE GOES. PATIENT HAS A CLEAN BREIF ON CURRENTLY. PATIENT IS SITTING IN BED EATING DINNER. PATIENT DOES BECOME MORE SHORT OF BREATH WHEN REPOSITIONING AND THIS RN INCREASED OXYGEN TO 4L WHEN PATIENT IS LYING FLAT AND REPOSITIONING, AND THEN DECREASES IT BACK TO 2L. THIS HELPS WITH PATIENTS SHORTNESS OF BREATH. PATIENT ENCOURAGED TO REPOSITION EVERY TWO HOURS, BUT HAS REFUSED BESIDES PUTTING PILLOWS UNDER ARMS. PATIENT HAS SOME REDDNESS TO HIS BOTTOM. CREAM APPLIED. NO ACUTE CHANGES THIS SHIFT. CALL LIGHT WITHIN REACH AND BED IN LOWEST POSITION. WILL CONTINUE TO MONTIOR AND PROVIDE CARE UNTIL HAND OFF WITH NEXT SHIFT.
--- NOTE | 2021-07-29 05:47 | NUR ---
SHIFT SUMMARY PATIENT ALERT AND ORIENTED x4. ABLE TO MAKE NEEDS KNOWN TO STAFF. USES CALL LIGHT APPROPRIATELY. VSS. TELE READING AFIB 110-120s. PATIENT WEARING 3L NC WITH O2 >90%. PATIENT DOES GET SOB WITH EXERTION BUT IS ABLE TO RECOVER. 2 INCONTINENT BMs THIS SHIFT, BRIEF IN PLACE. CHRONIC TAYLOR CATH IN PLACE DRAINING DARK YELLOW URINE. NO OTHER SIGNIFICANT CHANGES THIS SHIFT. WILL REPORT TO DAY SHIFT RN.
--- NOTE | 2021-07-29 16:19 | NUR ---
SHIFT SUMMARY Pt is a/o x 4. He has chronic SOB and has requested his inhaler throughout the day. He reports that he uses it 6-8 times a day when hes at home, whenever he feels like he needs it. He has remained on his baseline of 2 lpm via NC with sats in the high 90's. This morning his heart rate was elevated into the 140's and he was SOB during this time. Dr Wilkinson was notified and put orders in to start PO cardizem, since then his heart rate has been in the one hundreds. He worked with PT/OT and they got him up to the recliner earlier and he has been there with his at his side. His ravi is patent. He has had several visitors today and napped after his visits. He is able to make his needs known and calls when needed.
--- NOTE | 2021-07-30 01:36 | NUR ---
CALL TO DR VARNER RN CALLS DR FULTON TO DISCUSS PT'S HR INCREASED AND CONCERN FOR TACHYPNEA AND EDEMA D/T NO ORDER FOR DIURETICS AT THIS TIME. DR FULTON TO ORDER PRN FOR HR AND CHEST XRAY.
[2021-07-30 03:19] LABS: Hematocrit 43.3 % (37.0-53.0); Hemoglobin 13.8 g/dL (13.5-17.5); Mean Corpuscular HGB 28.7 pg (26.0-34.0); Mean Corpuscular HGB Conc 31.9 g/dL (31.5-36.5); Mean Corpuscular Volume 90 fL (80-100); Mean Platelet Volume 11.7 fL (9.1-12.4); Platelet Count 242 K/mm3 (150-400); RDW Standard Deviation 46.2 fL (35.1-46.3); Red Blood Cell Count 4.81 M/mm3 (4.30-5.90); White Blood Cell Count 13.33 K/mm3 (4.00-11.30)
[2021-07-30 03:39] LABS: Albumin, Blood 3.8 g/dL (3.4-5.0); Albumin/Globulin Ratio 1.1 (0.8-1.8); Bilirubin, Total 0.7 mg/dL (0.1-1.0); Bun/Creatinine Ratio 35.1 (12.0-20.0); Calcium, Blood 8.9 mg/dL (8.5-10.1); Creatinine, Blood 2.88 mg/dL (0.60-1.20); Globulin, Blood 3.4 g/dL (2.2-4.0); Potassium, Blood 4.2 mmol/L (3.5-5.5); Total Protein, Blood 7.2 g/dL (6.4-8.2)
--- NOTE | 2021-07-30 07:15 | NUR ---
PT SUMMARY PT'S BREATHING APPEARED TACHYPNEIC AND INCREASINGLY LABORED T/O SHIFT. HR INCREASED WELL, AVERAGING 120'S AFIB W/FREQUENT PVCS. PT DENIES CP. LITTLE EFFECT FROM IV PUSH LOPRESSOR. RESULTS OF BNP OVER 1800, DR FULTON ORDERS CPAP. PT HAS DIFFICULTY TOLERATING CPAP ON INITIAL PLACEMENT. SATS 96-98% ON CPAP, HR UP TO 140'S D/T AGITATION FROM CPAP. THIS RN PLACES PT BACK ON 2 L VIA NC PRIOR TO SHIFT CHANGE, RT CALLED TO BEDSIDE TO REEVALUATE CPAP FOR PT.
--- NOTE | 2021-07-30 07:45 | NUR ---
AM ASSESSMENT: Pt resting in bed. States that he thinks he is breathing a little better now that the CPAP settings have been adjusted. Pressure of 10 with 2L bleed in. Resp rate still tachypnic. HR Afib with rate 120's at this time, frequent PVC's noted. BT positive. Pulses palp. Chronic ravi draining yellow urine. Pt has agreed to leave CPAP on for a while to improve breathing. Call light is in reach. Will continue to monitor.
--- NOTE | 2021-07-30 18:16 | NUR ---
SHIFT SUMMARY: Pt sitting up in chair at this time with family at bedside. Pt HR has improved this shift and is currently afib, rate 70-100's. BP stable. Pt breathing has improved. Was on CPAP on and off . When off CPAP Pt is on 2L per NC. Tolerating well. Less tachypnic. Pt did have a new red spot appear on L calf. Picture taken and placed in chart. No other changes, overall Pt seemed to improve slightly throughout shift. Will continue to monitor and report to night RN.
[2021-07-31 04:32] LABS: Hemoglobin 13.4 g/dL (13.5-17.5); Mean Corpuscular HGB 28.4 pg (26.0-34.0); Mean Corpuscular HGB Conc 31.9 g/dL (31.5-36.5); Mean Corpuscular Volume 89 fL (80-100); Mean Platelet Volume 11.5 fL (9.1-12.4); Platelet Count 165 K/mm3 (150-400); RDW Coefficient Variation 13.7 % (11.7-14.2); RDW Standard Deviation 44.5 fL (35.1-46.3); Red Blood Cell Count 4.72 M/mm3 (4.30-5.90); White Blood Cell Count 9.91 K/mm3 (4.00-11.30)
[2021-07-31 05:03] LABS: Albumin, Blood 3.4 g/dL (3.4-5.0); Bilirubin, Total 0.6 mg/dL (0.1-1.0); Bun/Creatinine Ratio 45.6 (12.0-20.0); Creatinine, Blood 2.17 mg/dL (0.60-1.20); Globulin, Blood 3.3 g/dL (2.2-4.0); Potassium, Blood 3.5 mmol/L (3.5-5.5); Total Protein, Blood 6.7 g/dL (6.4-8.2)
--- NOTE | 2021-07-31 06:05 | NUR ---
SHIFT SUMMARY PT RESTED WELL THROUGH THE NIGHT. ALERT AND ORIENTED, ABLE TO MAKE NEEDS KNOWN. COOPERATIVE [facility] PLAN OF CARE. SATS >95% ON CPAP OVERNIGHT, 2L BLEED IN. TELE READS AFIB, RATE 80-100. TAYLOR IN PLACE. NO BM. NO C/O PAIN. CALL LIGHT IWTHIN REACH., BED IN LOWEST POSITION, WILL CONTINUE TO MONITOR.
--- NOTE | 2021-07-31 17:50 | NUR ---
SHIFT SUMMARY PT HAS REMAINED ALERT AND ORIENTED X 4 T/O SHIFT. HE IS PLEASANT AND COOPERATIVE WITH CARE. HE IS HARD OF HEARING AND WEARS BILATERAL HEARING AIDS THAT ARE IN PLACE. SPO2 HAS MAINTAINED >90% VIA 2L NC. UPON AMBULATION PT REPORTED FEELING SHORT OF BREATH BUT SPO2 MAINTAINED >90%. HE CONTINUED TO DENY FEELINGS OF CHEST PAIN/PRESSURE T/O SHIFT. BP STABLE, HR RANGED 100-110'S, RYTHM AFIB PER TELE REPORT. CHRONIC TAYLOR CATHETER IN PLACE AND DRAINING WITH GRAVITY STRAW YELLOW OUTPUT. HE IS ON 1500 FLUID RESTRICTIONS/24 HOURS AND HAS TOLERATED 1000/DAY SHIFT RESTRICTION WELL. PT COMLAINED T/O SHIFT ABOUT NOT BEING ABLE TO USE STRAW FOR DRINKS. THIS NURSE WELL OTHER STAFF MEMBERS EDUCATED PT ABOUT RISKS FOR ASPIRATION. SPEECH THERAPIST RANJITH REPORTED THAT SHE CONSULTED WITH DR. OWUSU AND WILL POSSIBLY RETRACT SPEECH THERAPY RESTRICTIONS DUE TO PT BEING NON-COMPLIANT. PT HAS REDDENED AREA ON LEFT OUTER CALF THAT HAS REMAINED UNCHANED T/O SHIFT. AND DAUGHTER WERE AT BEDSIDE UNTIL APPOX 1500. PHYSICAL THERAPY WORKED WITH PT TODAY. ECHO PERFORMED TODAY AND IS STILL PENDING RESULTS. PT IS NOW IN CHAIR WATCHING TV. CALL LIGHT IS IN REACH. WILL CONTINUE TO MONITOR UNTIL REPORT IS GIVEN.
[2021-08-01 01:08] LABS: ALKALINE PHOSPHATASE, S 61 IU/L (44-121); BONE FRACTION: 29 % (12-68); INTESTINAL FRAC.: 5 % (0-18); LIVER FRACTION: 66 % (13-88)
--- NOTE | 2021-08-01 05:17 | NUR ---
SHIFT SUMMARY PT SITTING UP IN BEDSIDE CHAIR AT SHIFT CHANGE. PT WAS ABLE TO GET BACK TO BED WITH MINIMAL ASSISTANCE. VSS. AFIB W/PVS WITH HEART RATE IN 80'S - 90'S. SBP IN 115 - 120'S. O2 SAT > 97% ON 2 L VIA NC. PT DENIES SOB. PT DENIES CHEST PAIN OR CHEST PRESSURE. PT REFUSED SEQUENTIAL COMPRESSION DEVICES OR EMBOLIC STOCKINGS. PT DID NOT WANT TO BE REPOSITIONED OR TURNED Q2, ONLY ACCEPTED OCCASSIONAL ASSISTANCE TO TURN. PT HAS RASH ON LEFT LEG, NO CHANGES FROM PREVIOUS SHIFT. TAYLOR CATHETER IN PLACE AND DRAINING TO GRAVITY. URINE IS DARK YELLOW BUT CLEAR, TOTAL URINE OUTPUT 1025 ML. PT RESTED MOST OF THE EVENING AND SLEPT. PT ON CPAP. BED IN LOWEST POSITION AND CALL LIGHT WITHIN REACH. WILL CONTINUE TO MONITOR AND REPORT TO ONCOMING RN.
[2021-08-01 08:28] LABS: Hematocrit 41.3 % (37.0-53.0); Hemoglobin 13.1 g/dL (13.5-17.5); Mean Corpuscular HGB 28.6 pg (26.0-34.0); Mean Corpuscular HGB Conc 31.7 g/dL (31.5-36.5); Mean Corpuscular Volume 90 fL (80-100); Mean Platelet Volume 11.3 fL (9.1-12.4); Platelet Count 156 K/mm3 (150-400); RDW Coefficient Variation 14.2 % (11.7-14.2); RDW Standard Deviation 46.1 fL (35.1-46.3); Red Blood Cell Count 4.58 M/mm3 (4.30-5.90); White Blood Cell Count 9.12 K/mm3 (4.00-11.30)
[2021-08-01 08:38] LABS: Bun/Creatinine Ratio 49.4 (12.0-20.0); Calcium, Blood 9.2 mg/dL (8.5-10.1); Creatinine, Blood 1.68 mg/dL (0.60-1.20); Potassium, Blood 3.5 mmol/L (3.5-5.5)
--- NOTE | 2021-08-01 10:11 | NUR ---
UPDATE TELE NOTIFIED RN ABOUT R ON T RHYTHM, RHYTHM PRINTED AND SHOWN TO
--- NOTE | 2021-08-01 18:32 | NUR ---
SHIFT SUMMARY PT A/O X4. PT HR A-FIB 80-100'S THROUGHOUT SHIFT. OTHER VSS THROUGHOUT SHIFT WITH O2 SATS >95% ON 2L NC. NO REPORT OF CHEST PAIN/PRESSURE THROUGHOUT SHIFT. NO REPORT OF SOB THOUGH PT HAD PERIODS OF TACHYPNEA WHEN MOVING SELF IN BED. PT USE CPAP FOR SLEEPING. PT REFUSED FLUID RESTRICTION, STRAW RESTRICTION, AND PHYSICAL THERAPY DURING SHIFT, PT STILL PLEASANT AND CALLED APPROPIATE. TAYLOR IN PLACE DRAINING TO GRAVITY, JAYSHREE URINE. PLAN TO DISCHARGE ON HOSPICE POSSIBLY TOMORROW.
[2021-08-02 04:29] LABS: Hematocrit 41.4 % (37.0-53.0); Hemoglobin 13.2 g/dL (13.5-17.5); Mean Corpuscular HGB 28.6 pg (26.0-34.0); Mean Corpuscular HGB Conc 31.9 g/dL (31.5-36.5); Mean Corpuscular Volume 90 fL (80-100); Mean Platelet Volume 11.3 fL (9.1-12.4); Platelet Count 172 K/mm3 (150-400); RDW Coefficient Variation 14.2 % (11.7-14.2); Red Blood Cell Count 4.62 M/mm3 (4.30-5.90); White Blood Cell Count 10.22 K/mm3 (4.00-11.30)
[2021-08-02 05:05] LABS: Albumin, Blood 3.3 g/dL (3.4-5.0); Bilirubin, Total 0.5 mg/dL (0.1-1.0); Bun/Creatinine Ratio 46.1 (12.0-20.0); Calcium, Blood 9.2 mg/dL (8.5-10.1); Creatinine, Blood 1.67 mg/dL (0.60-1.20); Globulin, Blood 3.4 g/dL (2.2-4.0); Magnesium, Blood 3.3 mg/dL (1.6-2.4); Potassium, Blood 3.7 mmol/L (3.5-5.5); Total Protein, Blood 6.7 g/dL (6.4-8.2)
--- NOTE | 2021-08-02 05:11 | NUR ---
SHIFT SUMMARY PT ALERT AND ORIENTED X4. VSS THROUGHOUT SHIFT; AFIB WITH HEART RATE IN 90'S- 115'. PT DENIES SOB HOWEVER IS TACHYPNEIC, 02 SATS >96% ON 2 L VIA NC. PT HAS OCCASSIONAL WET COUGH BUT DENIES ANY SPUTUM PRODUCTION. PT DENIES CHEST PAIN AND PRESSURE. TAYLOR CATHETER IN PLACE AND DRAINING TO GRAVITY. TOTAL URINE OUTPUT 550 ML; URINE IS DARK YELLOW WITH SMALL AMOUNT OF SEDIMENT NOTED. PT REFUSED SEQUENTIAL COMPRESSION DEVICES OR STOCKINGS. PT DID NOT WANT Q2 TURNS OR REPOSITIONING. PT EDUCATED ABOUT DEVICES AND PRESSURE SORE PREVENTION. THIS STUDENT NURSE ENCOURAGED HIM TO TURN AND MOVE INDEPENDENTLY TO PREVENT PRESSURE SORES. WILL CONTINUE TO MONITOR. BED IS IN LOWEST POSITION. SIDE RAILS UP AND CALL LIGHT WITHIN REACH.
--- NOTE | 2021-08-02 17:36 | NUR ---
SHIFT SUMMARY PT A/O AND CALLS APPROPIATE. VSS THROUGHOUT SHIFT WITH O2 SATS >93% ON 2L NC. PT UP IN RECLIER FOR ABOUT HALF OF SHIFT, ABLE TO TRANSFER TO AND FROM RECLINER WITH USE OF WALKER AND GAIT BELT, 1 PERSON ASSIST. PT REFUSED TO FOLLOW FLUID RESTRICTION AND RESTRICTION OF USE OF STRAW. TAYLOR IN PLACE DRAINING TO GRAVITY, JAYSHREE URINE. NO REPORT OF CHEST PAIN/PRESSURE THROUGHOUT SHIFT. PT REPORTED SOME SOB, REQUESTED BREATHING TREATMENT FROM RT. PT HAD COUGHING EPISODE DURING LUNCH, REPORTED "FISH WENT DOWN WRONG PIPE." ALSO REPORTS "THIS HAPPENS QUITE OFTEN."
[2021-08-03 05:03] LABS: Bun/Creatinine Ratio 43.5 (12.0-20.0); Calcium, Blood 9.3 mg/dL (8.5-10.1); Creatinine, Blood 1.61 mg/dL (0.60-1.20); Potassium, Blood 3.8 mmol/L (3.5-5.5)
--- NOTE | 2021-08-03 05:36 | NUR ---
SHIFT SUMMARY: ORIENTATION DETERMINED WITH DIFFICUTLY DUE TO [place], A&OX3. HR IS A-FIB IN 100'S-120'S. O2 SATS REMAIN IN 90'S ON 2 LPM. PT ON CPAP FOR SEVERAL HOURS LAST NIGHT BUT DID NOT TOLERATE WELL. BLE AND BUE ELEVATED TO HELP DECREASE SWELLING. WILL MONITOR.
--- NOTE | 2021-08-03 18:16 | NUR ---
Pt and his requested a visit from this RN to discuss options for going home. Both pt and his state they're "more than ready" to return home, but understand they will need support of hospice agency in order to successfully do this. Unlikely for a discharge prior to Thursday. Pt preferes [facility] hospice as they were on [facility] services previously, and health has declined significantly since graduating from hospice. He will likely be readmitted, if they have availability.
--- NOTE | 2021-08-03 18:16 | NUR ---
END OF SHIFT: I BELIEVE THAT WE ARE WAITING FOR HOSPICE/HOME HEALTH FOR DC HOME, BUT MOST LIKELY WILL BE TOMORROW. PROVIDER OK WITH NO IV AT THIS TIME. I ASKED WHEN IN THE ROOM WITH HER AND THE PATIENT. PATIENT NOW HAS ONLY ORAL, AND IS STABLE AT THIS TIME. DENIES CHEST PAIN FEVER, CHILLS, SOB, OR PRESSURE. PATIENT DENIED ON MULTIPLE ACCOUNTS FOR THE [place] HOSE, EVEN WHEN EDUCATED ON IMPORTANCE. PATIENT HAS BEEN ON FLUID RESTRICTIONS AND STRICT I&O. PATIENT HAS BEEN AFEBRILE AT THIS TIME. PATIENT IN NO SIGNS OF ACUTE STRESS. 2L VIA NC HAS KEPT PATIENT 96%OR>. NO SOB AT REST AT THIS TIME, DYSPHAGIA AND ST NOTES APPLIED TO CARE GIVEN TODAY. PATIENT DENIED ORAL CARE HE'D RATHER SLEEP. WICHITA, BUT MOSTLY COOPERATIVE WITH CARE. 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
--- NOTE | 2021-08-03 20:03 | NUR ---
ASSUMED PT CARE FORM MING GUERRERO ON DAY SHIFT. PT SITTING UP IN CHAIR WATCHING TV. DENIES ANY CHEST PAIN. STATES IMPROVED SOB. O2 SATS AT 96% ON 2LPM, WHICH IS HIS BASELINE O2. TAKES EVENING MEDICATIONS WITHOUT DIFFICUTLY. REFUSING TO DRINK WITHOUT STRAW BUT DOES NOT COUGH OR CHOKE WHEN TAKING PILLS WHOLE WITH THIN LIQUIDS FROM STRAW. DANIA RT IN GIVING PT EVENING BREATHING TREATMENTS.
--- NOTE | 2021-08-04 06:52 | NUR ---
PT SLEEP COMFORTABLY THOUGHOUT NIGHT. NO COMPLAINTS OF PAIN OR SOB. TAYLOR DRAINING YELLOW URINE WITHOUT DIFFICUTLY, SEDIMENT NOTED IN TAYLOR CATHETER TUBING BUT APPEARS CLEAR IN BAG. HR REMAINS IN A-FIB IN 100'S-120'S. PT TOLERATED CPAP FOR SEVERAL HOURS LAST NIGHT THEN REQUESTED TO BE PLACED ON 2 LPM.
--- NOTE | 2021-08-04 17:50 | NUR ---
END OF SHIFT: PATIENT HAS BEEN MORE AWAKE TODAY THAN PREVIOUS DAY. STILL ON 2L VIA NC BASELINE, AND TOLERATED THE CPAP FOR A COUPLE HOURS THROUGH THE NIGHT. PATIENT HAS BEEN PLEASANT, HOWEVER, DENIES NEED FOR REPOSITIONS, AND DENIES NEED FOR MECHANICAL PROPHYLAXIS OF DVT. PROVIDER AWARE. PLAN OF CARE IS TO AWAIT FOR HOSPICE FOR DISCHARGE TOMORROW. PATIENT SPO2>92%. HEART RATE DOES INCREASE TOWARDS THE NEED FOR NEXT DOSE OF BETA NURY. PATIENT HAS BEEN FOLLOWING GUIDELINES ABOUT FLUID RESTRICTIONS AND WORKING WITH STAFF ON THIS. PATIENT AGREEABLE WITH PLAN THAT DR. ROJAS HAS PROVIDED. THIS RN HAS NO QUESTIONS COMMENTS OR CONCERNS FOR THIS PATIENT AT THIS TIME.
--- NOTE | 2021-08-05 04:14 | NUR ---
SHIFT SUMMARY: PT HAS BEEN A&OX4 FOR ME DURING MY SHIFT. PT SITTING UP IN CHAIR DURING THE EVENING THEN RETURNED TO BED. PT HAS DECLINED CPAP PLACEMENT TONIGHT. ON 2 LPM VIA NC AND O2 SATS MAINTAING IN MID 90'S. PT HR NOTED TO BE IN 120-130'S PREVIOUS TO METOPROLOL LAST EVENING, MAINTAING NOW IN 110-120'S. PT RESTING COMFORTABLY IN BED MOST OF NIGHT. LEGS ELEVATED TO HELP WITH DECREASE OF SWELLING. TAYLOR CATHETER DRAINING CLEAR, YELLOW URINE. CALL LIGHT IN REACH.
[2021-08-05] MEDS ORDERED: FURO40 PO (12:20)
[2021-08-05] MEDS ORDERED: DILT180 PO (12:20)
[2021-08-05] MEDS ORDERED: METOPROLOL TART PO (12:21)
--- NOTE | 2021-08-05 17:02 | NUR ---
DISCHARGE SUMMARY:PATIENT ON 2L VIA NC SPO2 GREATER THAN 95%, PATIENT IS IN NO SIGNS OF ACUTE DISTRESS, DENIES CEHST PAIN SOB, AND FEELS LESS SOB WHEN TRANSFERING. PATIENT WAS ESCORTED VIA WHEELCHAIR BY PATIENT GALLERY ASSISTANT AND RN. PATIENT HAD TELEMETRY DC'D, COMPLETELY UNDERSTOOD THE DISCHARGE INSTRUCTIONS, ALONG WITH . PATIENT FULLY AWARE OF PLAN, PATIENT HAD NO IV'S, CATHETER BAG CHANGED, CATHETER IS CHRONIC. NO CONCERNS FROM THIS SET BUILDER AT THIS TIME.
== END 2021-08-05 16:50 | disposition home or self-care (01) | DRG 280 ==
LOC: ER 10:34 → PCU 17:43
PROVIDERS: Internal Medicine; Student in an Organized Health Care Education/Training Program; ADMIT Family Medicine
PROC: 5A09357 Assistance with Respiratory Ventilation, Less than 24 Consecutive Hours, Continuous Positive Airway Pressure (ICD-10-PCS; principal; 2021-07-26)
PROC: 3E03329 Introduction of Other Anti-infective into Peripheral Vein, Percutaneous Approach (ICD-10-PCS; 2021-07-30)
DX: I13.0 Hypertensive heart and chronic kidney disease with heart failure and stage 1 through stage 4 chronic kidney disease, or unspecified chronic kidney disease (principal); J96.21 Acute and chronic respiratory failure with hypoxia; I21.A1 Myocardial infarction type 2; J69.0 Pneumonitis due to inhalation of food and vomit; I50.33 Acute on chronic diastolic (congestive) heart failure; N17.9 Acute kidney failure, unspecified; J44.1 Chronic obstructive pulmonary disease with (acute) exacerbation; I48.20 Chronic atrial fibrillation, unspecified; N39.0 Urinary tract infection, site not specified; Z20.822 Contact with and (suspected) exposure to COVID-19; N40.0 Benign prostatic hyperplasia without lower urinary tract symptoms; N18.30 Chronic kidney disease, stage 3 unspecified; Z66 Do not resuscitate; Z91.040 Latex allergy status; Z79.01 Long term (current) use of anticoagulants; Z88.5 Allergy status to narcotic agent; Z88.8 Allergy status to other drugs, medicaments and biological substances; Z99.81 Dependence on supplemental oxygen; E66.9 Obesity, unspecified; Z96.653 Presence of artificial knee joint, bilateral; Z98.890 Other specified postprocedural states; Z79.899 Other long term (current) drug therapy; Z79.82 Long term (current) use of aspirin; Z87.891 Personal history of nicotine dependence; D63.1 Anemia in chronic kidney disease; Z68.32 Body mass index [BMI] 32.0-32.9, adult
CPT/HCPCS: 0241U; 36415; 51702; 71045; 80048; 80053; 80076; 81001; 83735; 83880; 84075; 84080; 84145; 84443; 84484; 85025; 85027; 85379; 87077; 87086; 87106; 87186; 92610; 93005; 93010; 93306; 93970; 94640; 94660; 94664; 94760; 94762; 96365; 96366; 96368; 96375; 96376; 97110; 97162; 97166; 97530; 99285-25; A9270; J0696; J1940; J2930; J3475; J7512